=== PATIENT | male | born 1950 | race Caucasian/White ===

== ENCOUNTER 2017-07-19 08:08 | Outpatient (CLI) | payer MEDICARE ==
[2017-07-19 08:51] LABS: #Basophils 0.1 thou/uL (0.0-0.2); #Eosinphils 0.2 thou/uL (0.0-0.7); #Lymphocytes 2.3 thou/uL (1.20-3.40); #Monocytes 0.8 thou/uL (0.11-0.59); #Neutrophils 5.3 thou/uL (1.40-6.50); %Basophils 1.3 % (0.0-1.0); %Eosinophils 2.5 % (0.0-10.0); %Lymphocytes 26.7 % (21.0-51.0); %Monocytes 8.8 % (0.0-10.0); %Neutrophils 60.8 % (42.0-75.0); Hemoglobin 14.2 g/dL (14.0-18.0); Mean Corpuscular Hemoglobin 29.3 pg (27.0-31.0); Mean Corpuscular Volume 88.9 fl (80.0-94.0); Mean Platelet Volume 8.9 fL (7.4-10.4); Platelet Count 232 thou/uL (130-400); RBC Distribution Width 12.4 % (11.5-14.5); Red Blood Cell (RBC) Count 4.86 mill/uL (4.70-6.10); White Blood Cell (WBC) Count 8.7 thou/uL (4.8-10.8)
--- NOTE | 2017-07-19 09:54 | ULT ---
BILATERAL RENAL ULTRASOUND COMPLETE: History: 66-year-old male with history of left renal mass seen on prior MRI. Comparison: MRI examination, 06-28-17. FINDINGS: Right kidney measures 12.1 x 5.9 x 5.1 cm. Left kidney measures 11.4 x 5.4 x 5.1 cm. There is no renal hydronephrosis or perinephric process. There is an exophytic cyst off the mid porti on of the upper pole of the left kidney which measures approximately 1 x 1.4 cm in size but this does not represent the cyst/mass seen on the MRI which was off the very superior tip of the left kidney s o it is not imaged on this study. The bladder appears unremarkable. IMPRESSION: 1. The approximately 2.5 cm diameter mass off the superior tip of the left kidney seen on prior MRI i s not visualized on this ultrasound examination and is therefore not further characterized. Given tim t it is not imaged on the ultrasound examination, a follow up CT scan with and without IV contrast wi th renal mass protocol is recommended for further assessment. 2. Approximately 1 x 1.2 x 1.5 cm diameter exophytic cyst off the mid upper pole region of the left k idney does not represent the mass seen on the prior lumbar spine MRI examination. No renal hydronephr osis or other acute process. POS: C
[2017-07-19 10:09] LABS: ALT (SGPT) 10 U/L (8-55); AST (SGOT) 10 U/L (5-34); Albumin 3.7 g/dL (3.4-4.8); Alkaline Phosphatase 92 U/L (40-150); Anion Gap 15 mmol/L (10-20); BUN (Urea Nitrogen) 16 mg/dL (8.4-25.7); Bilirubin, Direct 0.2 mg/dL (0.1-0.3); Bilirubin, Total 0.4 mg/dL (0.2-1.2); Calc. Creatinine Clearance 0 mL/min (70-130); Carbon Dioxide 25 mmol/L (23-31); Cardiac Risk 3.5 (Less than 4.5); Chloride 102 mmol/L (98-107); Cholesterol 144 mg/dl (< 200 Desired); Estimated GFR-MDRD 57; Glucose 284 mg/dL (80-115); HDL Cholesterol 41 mg/dL (>60 Neg Risk); LDL Cholesterol, Calculated 74 mg/dL; Potassium 4.2 mmol/L (3.5-5.1); Protein, Total 7.5 g/dL (5.8-8.1); Sodium 138 mmol/L (136-145); Triglycerides 147 mg/dL (Less than 150)
[2017-07-19 17:16] LABS: Hemoglobin A1c 11.9 % (4.0-6.0)
== END 2017-07-19 08:09 | disposition home or self-care (01) ==
LOC: MADLABBHPM 08:08 → EDSTATUS 08:09
PROVIDERS: ATTEND Family Medicine
DX: N28.89 Other specified disorders of kidney and ureter (principal); I10 Essential (primary) hypertension; E78.00 Pure hypercholesterolemia, unspecified; I12.9 Hypertensive chronic kidney disease with stage 1 through stage 4 chronic kidney disease, or unspecified chronic kidney disease; E11.22 Type 2 diabetes mellitus with diabetic chronic kidney disease; N18.2 Chronic kidney disease, stage 2 (mild); N28.1 Cyst of kidney, acquired
CPT/HCPCS: 36415; 76770; 80048; 80061; 80076; 83036; 84443; 85025

== ENCOUNTER 2018-01-18 17:21 | Inpatient (IN) | payer MEDICARE ==
[~2018-01-18 17:21] MED LIST: Sodium Chloride Irrig Solution 250 ML BOT ONE
[2018-01-18] MEDS ORDERED: Melatonin 3 MG TAB PO PRN (22:05)
[2018-01-18] MEDS ORDERED: Acetaminophen/Codeine 30-300mg Tablet PO PRN ×2 (22:06)
[2018-01-18] MEDS ORDERED: Amiodarone 200 MG TAB PO SCH (22:15)
[2018-01-18] MEDS ORDERED: Gabapentin 300 MG CAP PO SCH (22:15)
[2018-01-18] MEDS ORDERED: metFORMIN 500 MG TAB PO SCH (22:15)
[2018-01-18] MEDS ORDERED: Lantus 1000 UNITS/10 ML VIAL SC SCH (22:15)
[2018-01-18] MEDS ORDERED: Rosuvastatin 10 MG TAB PO SCH (22:15)
[2018-01-18] MEDS ORDERED: Carvedilol 6.25 MG TAB PO SCH (22:15)
[2018-01-19 05:53] LABS: ALT (SGPT) 9 U/L (8-55); AST (SGOT) 13 U/L (5-34); Albumin 2.9 g/dL (3.4-4.8); Alkaline Phosphatase 83 U/L (40-150); Anion Gap 11 mmol/L (10-20); BUN (Urea Nitrogen) 19 mg/dL (8.4-25.7); Bilirubin, Total 0.5 mg/dL (0.2-1.2); Calc. Creatinine Clearance 0 mL/min (70-130); Calcium 8.8 mg/dL (7.8-10.44); Carbon Dioxide 27 mmol/L (23-31); Cardiac Risk 3.6 (Less than 4.5); Chloride 100 mmol/L (98-107); Cholesterol 142 mg/dl (< 200 Desired); Estimated GFR-MDRD 56; Globulin 3.8 g/dL (2.4-3.5); Glucose 197 mg/dL (80-115); HDL Cholesterol 40 mg/dL (>60 Neg Risk); LDL Cholesterol, Calculated 85 mg/dL; Potassium 4.1 mmol/L (3.5-5.1); Protein, Total 6.7 g/dL (5.8-8.1); Sodium 134 mmol/L (136-145); Triglycerides 85 mg/dL (Less than 150)
[2018-01-19 06:09] LABS: Anisocytosis SLIGHT = 6-15 cells (100X) (0-5/hpf); Eosinophils 1 % (0-10); Hypochromia SLIGHT = 6-15 cells (100X) (0-5/hpf); Lymphocytes 10 % (21-51); MDiff Complete? YES; Mean Corpuscular Hemoglobin 26.7 pg (27.0-31.0); Mean Corpuscular Volume 83.7 fL (78.0-98.0); Mean Platelet Volume 8.3 fL (7.4-10.4); Monocytes 9 % (0-10); Neutrophil 77 % (42-75); PLT Morphology Comment Appears Adequate; Platelet Count 151 thou/uL (130-400); Poikilocytosis SLIGHT = 6-15 cells (100X) (0-5/hpf); RBC Distribution Width 14.6 % (11.5-14.5); RBC Morphology Abnormal; Reactive Lymphocytes 3 % (0-10); Red Blood Cell (RBC) Count 3.37 mill/uL (4.70-6.10); White Blood Cell (WBC) Count 12.3 thou/uL (4.8-10.8)
[2018-01-19] MEDS: HumaLOG 300 UNITS/3 ML VIAL SC SCH ×2 (07:25→17:04)
[2018-01-19] MEDS: metFORMIN 500 MG TAB PO SCH ×2 (08:11→20:38)
[2018-01-19] MEDS: Gabapentin 300 MG CAP PO SCH ×2 (08:11→20:38)
[2018-01-19] MEDS: Amiodarone 200 MG TAB PO SCH ×2 (08:11→20:38)
[2018-01-19] MEDS: Carvedilol 6.25 MG TAB PO SCH ×2 (08:12→17:04)
[2018-01-19] MEDS: Lisinopril 10 MG TAB PO SCH (08:12)
[2018-01-19] MEDS: Lantus 1000 UNITS/10 ML VIAL SC SCH ×2 (08:12→20:36)
[2018-01-19 09:18] LABS: Bilirubin Negative (Negative); Blood, Urine Moderate (Negative); Clarity Cloudy (Clear); Glucose, Urine (Dipstick) 100 mg/dL (Negative); Leukocyte Negative (Negative); Nitrite Negative (Negative); Protein, Urine (Dipstick) > or equal to 300 mg/dL (Neg-Trace); Urobilinogen 0.2 mg/dL (0.2-1.0); pH, Urine 5.5 (5.0-9.0)
[2018-01-19 09:19] LABS: Specific Gravity, Urine 1.023 (1.002-1.036); Squamous Epithelial 0-3 HPF (0-3); WBC/HPF 0-3 HPF (0-3)
[2018-01-19 09:20] LABS: Bacteria/HPF Rare-Few HPF (None Seen); Crystals/HPF 3+ AMORPH URATES HPF (Negative)
[2018-01-19] MEDS: Enoxaparin Sodium 40 MG/0.4 ML SYRINGE SC SCH (09:26)
[2018-01-19] MEDS: Polyethylene Glycol 3350 17 GM Packet PO SCH (09:26)
--- NOTE | 2018-01-19 09:51 | HP ---
Admitted to [facility] on the evening of 01/18/2018 CHIEF COMPLAINT: Severe weakness following low back surgery. PRESENT ILLNESS: The patient is a 67-year-old white male who has a history of diabetes type 2 insuli n-dependent, hypertension, coronary artery disease for which he has had multiple stents and coronary artery bypass in 09/2017. Additionally, he has severe lumbar spondylosis at multiple levels with hig h grade spinal stenosis. He was hospitalized at [facility] from 01/16/2018 until 01/19/20 18 and he underwent a decompressive laminectomy, medial facetectomy, foraminotomy at L1-L2, L3-L4 and L5-S1 with closure of a durotomy in the right L1 by his neurosurgeon, Dr. Mariel Kwon. Postop, he had some trouble with urinary retention and required placement of a Carl catheter. This has happened to him before after his coronary artery bypass surgery and he had use a Carl catheter f or a few days. The patient has not been up other than sitting on the side of the bed, has not been a mbulating, he said it is been too weak. It was opted to transfer patient to [facility] for pur pose of increasing his strength and functional capabilities and manage his postop urinary retention. The patient was transferred early evening to [facility]. The patient was seen early on the morning of 01/19/2018. He said that his back already feels much be tter since his surgery, he was having chronic pain in the back that hurt all over the back and in the legs since his surgery, sore from the surgery, but his overall pain is less. The patient said he bach s not had a bowel movement for several days, said that he was not able to void and required the Carl catheter which was placed on 01/18/2018. The urine has been clear. He has had no dysuria. The pat ient said that he has only been up to sit on the side of the bed, has not been up otherwise out of be d. PAST HISTORY: Hospitalized at [facility] from 01/16/2018 until 01/18/2018 for high grade spinal stenosis of the lumbar spine, particularly at L1-L2 and L3-L4 level for which he underwent a d ecompressive laminectomy, medial facetectomy and foraminotomy and L1-L2, L3-L4, and L5-S1 and closure of a durotomy at right L1. The patient has coronary artery disease. He had a myocardial infarction in 2009 and underwent a heart catheterization and stent x1 on 12/05/2009. He had a second IA in , requiring a second stent. On September, he underwent a preop evaluation for his back and had an abnorma l MPI, heart catheterization then showed severe triple-vessel disease. He underwent a coronary arter y bypass on 10/03/2017. Postop, he had a little trouble with his CHF and fluid overload that respond ed to the diuresis and BiPAP. He has done fine since then. The patient also has hypertension, perip heral artery disease for which he has had stents placed in the lower extremities in 09/2015. He has mild chronic kidney diserase, hypercholesterolemia, diabetes mellitus type 2 that is insulin requirin g and under poor control. He has an exophytic cyst of the mid upper pole of the left kidney and also he has problems with BPH and history of urinary retention after his coronary artery bypass. He has peripheral neuropathy of the lower extremities from the diabetes. On 09/2017, his echocardiogram lucas wed an ejection fraction of 40%. The patient has had a right total hip replacement. The patient has some trouble with postop atrial fibrillation for which he has had no recurrence. PRESENT MEDICINES: Tylenol #3 one or two every 6 hours as needed, amiodarone 200 mg b.i.d., carvedil ol 6.25 mg b.i.d., Neurontin 300 mg b.i.d., Levemir 15 units subcutaneous q.12 hours, Humalog 4 units before meals twice today, Crestor 20 mg daily, metformin 1000 mg b.i.d., melatonin 3 mg at bedtime a s needed, lisinopril 10 mg daily. ALLERGIES: No known allergies. REVIEW OF SYSTEMS: The patient has had no chills or fever. He does not think his weight has changed recently. Head and Neck: No complaints. Pulmonary: No shortness of breath. Cardiovascular: No chest pain. Gastrointestinal: No nausea or vomiting. He has not had a bowel mo vement for several days. Genitourinary: He has not been able to void after the surgery and required placement of a catheter on 01/18/2018. Back: Sore from the surgery. Extremities: Lower extremiti es, no edema. Neurologic: No complaints. HABITS: Tobacco none. Alcohol none. SOCIAL HISTORY: Patient is and recently lives with his . CODE STATUS: FULL CODE. PHYSICAL EXAMINATION: GENERAL: Shows a pleasant 67-year-old white male who is lying in bed. He is awake and alert and yury kative. He appears comfortable. Needs help with moving in bed due to his weakness. VITAL SIGNS: Shows temperature 97.6, pulse 88, blood pressure 133/67, respirations 18, O2 sat 96% on room air, blood pressure 148/76. His weight to be weigh. HEAD: Normocephalic. EYES: Pupils were equal, round, reactive. EARS: TMs are clear. NOSE: Normal. MOUTH AND THROAT: Normal. NECK: No adenopathy. Thyroid not enlarged. Carotids are equal and strong, no bruits. LUNGS: Clear. HEART: Regular rate. No murmurs. CHEST: The patient has a well healed sternal scar. ABDOMEN: Soft with no organomegaly, nor areas of tenderness. EXTREMITIES: No edema. The patient has an indwelling Carl catheter. BACK: The patient has an incision along the lumbar spine with shivam present. He has a Tegaderm wi th pad overlying the incision. This was changed a couple of times during the night due to some seros anguineous drainage. There is no surrounding redness. LABORATORY DATA: Hemoglobin and hematocrit are 9 and 28.2, white cell count 12,300 with 72% segs, 10 % lymphocytes, and a platelet count of 151,000. Sodium 134, potassium 4.1, BUN 19, creatinine 1.28, GFR 56, glucose 197, albumin 2.9, cholesterol 142, triglycerides 85, LDL 85, HDL 40. Hemoglobin A1c pending. IMPRESSION: 1. Generalized weakness and deconditioning. A. Secondary to his low back surgery on 01/16/2018. B. Presently, he has not been up ambulating since his surgery. 2. Hospitalized at [facility] from 01/16/2018 until 01/18/2018 for severe spondylosis of the lumbar spine with high grade stenosis for which he underwent a decompressive surgery. 3. Severe spondylosis of the lumbar spine with high grade spinal stenosis and neurogenic claudicatio n at L1-L2, L3-L4 and L5-S1 level. A. Status post decompressive laminectomy, medial facetectomy, foraminotomy at L1-L2, L3-L4, and L5-S 1 with closure of durotomy on the right L1 on 01/16/[address] Mariel Kwon. B. Complicated by postop urinary retention requiring placement of Carl catheter on 01/18/2018. 4. Postop urinary retention. A. Requiring placement of Carl catheter on 01/18/2018. B. History of postop urinary retention with coronary artery bypass surgery in 09/2017. 5. Coronary artery disease. A. Status post myocardial infarction in 2009 and again in 2011. B. Status post stent x1, following the myocardial infarction in 2009 and second stent applied after the myocardial infarction in 2011. C. Coronary artery bypass x3 after an abnormal MPI. Heart cath showed triple-vessel disease, 2017. D. Echocardiogram on 09/29/2017 showed ejection fraction of 35%-40% with apex akinetic and atrial fi brillation, mild increased left ventricular size. 6. Diabetes type 2. A. Insulin-dependent. B. Poor control. C. Complicated by peripheral neuropathy. 7. Hypercholesterolemia. 8. Chronic kidney disease, mild. A. Moderate chronic kidney disease with a GFR of 56. 9. Peripheral vascular disease. A. Status post stent placed in the lower extremities in 09/2015. 10. Episode of atrial fibrillation. History of following coronary artery bypass, 09/2017. 11. Anemia. A. Hemoglobin 9.0. B. Etiology probably secondary to recent back surgery. PLAN: The patient has been admitted to [facility] to extended care for physical therapy, PT an d OT will begin working with him and gradually progressing his activities. We will continue his pres ent medicines, I have placed him on a consistent carbohydrate diet. He will receive his usual insuli n basal and preprandial Humalog. Carl catheter will be left in a few days until he is more active a nd then this will be removed. He will be placed on MiraLax and also deep venous thrombosis prophylax is with the Lovenox. CODE STATUS: FULL.
[2018-01-19 12:15] LABS: Hemoglobin A1c 8.7 % (4.0-6.0)
[2018-01-19] MEDS: Ondansetron ODT 4 MG TAB PO PRN (13:30)
[2018-01-19] MEDS: Rosuvastatin 10 MG TAB PO SCH (20:38)
[2018-01-20] MEDS: HumaLOG 300 UNITS/3 ML VIAL SC SCH ×2 (07:30→16:35)
[2018-01-20] MEDS: Enoxaparin Sodium 40 MG/0.4 ML SYRINGE SC SCH (08:15)
[2018-01-20] MEDS: Lantus 1000 UNITS/10 ML VIAL SC SCH ×2 (08:16→20:00)
[2018-01-20] MEDS: Polyethylene Glycol 3350 17 GM Packet PO SCH (08:18)
[2018-01-20] MEDS: metFORMIN 500 MG TAB PO SCH ×2 (08:19→20:01)
[2018-01-20] MEDS: Gabapentin 300 MG CAP PO SCH ×2 (08:19→20:01)
[2018-01-20] MEDS: Lisinopril 10 MG TAB PO SCH (08:20)
[2018-01-20] MEDS: Carvedilol 6.25 MG TAB PO SCH ×2 (08:20→16:35)
[2018-01-20] MEDS: Rosuvastatin 10 MG TAB PO SCH (20:01)
[2018-01-21] MEDS: Enoxaparin Sodium 40 MG/0.4 ML SYRINGE SC SCH (08:21)
[2018-01-21] MEDS: Polyethylene Glycol 3350 17 GM Packet PO SCH (08:21)
[2018-01-21] MEDS: Lantus 1000 UNITS/10 ML VIAL SC SCH ×2 (08:21→20:06)
[2018-01-21] MEDS: Gabapentin 300 MG CAP PO SCH ×2 (08:22→20:07)
[2018-01-21] MEDS: Lisinopril 10 MG TAB PO SCH (08:22)
[2018-01-21] MEDS: metFORMIN 500 MG TAB PO SCH ×2 (08:22→20:06)
[2018-01-21] MEDS: Carvedilol 6.25 MG TAB PO SCH ×2 (08:22→16:47)
[2018-01-21] MEDS: HumaLOG 300 UNITS/3 ML VIAL SC SCH ×2 (08:22→16:28)
[2018-01-21] MEDS: Ondansetron ODT 4 MG TAB PO PRN ×2 (12:34→16:46)
--- NOTE | 2018-01-21 17:19 | PRG ---
DATE OF SERVICE: 01/21/2018 SUBJECTIVE: The patient said he is feeling better, had a little nausea this morning and has vomited a small amount now; this happens intermittently. He has not been able to really stand for any length of time. He says his legs just get weak. He does have good sensation of the leg and ability to mov e the leg. He is getting a little more mobile in bed. He says he feels better and he said one of gregory mornings, he is going to get up and be able to just move better and walk. His had reported that he has been very depressed for some time even before this hospitalization. At times, he gets ve ry angry with her and has requested a trial of an antidepressant. OBJECTIVE: The patient seemed to be in good spirits. He is alert, talkative, appears in no distress . His vital signs show a temperature of 96.6, pulse 60, respirations 20, O2 sat 95% on room air, blo od pressure 142/71. Lungs were clear. Heart, regular rate. Abdomen, soft and nontender. Extremiti es: There is no edema. The patient has equal strength in both legs, can dorsiflex and plantarflex f sonja the feet, can raise the legs, but cannot hold them for very long in a raised position. He is slo w to try to turn himself in bed. His FBS this morning was 141. ASSESSMENT: 1. Generalized weakness and deconditioning. A. Secondary to his low back surgery on 01/16/2018. B. Presently, he has not been up ambulating since his surgery. C. Presently can only stand for a few seconds, still very weak in his legs as of 01/21/2018. 2. Hospitalized at [facility] from 01/16/2018 until 01/18/2018 for severe spondylosis of the lumbar spine with high grade stenosis for which he underwent a decompressive surgery. 3. Severe spondylosis of the lumbar spine with high grade spinal stenosis and neurogenic claudicatio n at L1-L2, L3-L4 and L5-S1 level. A. Status post decompressive laminectomy, medial facetectomy, foraminotomy at L1-L2, L3-L4, and L5-S 1 with closure of durotomy on the right L1 on 01/16/[address] L[address] Seth III Doyle. B. Complicated by postop urinary retention requiring placement of Carl catheter on 01/18/2018. 4. Postop urinary retention. A. Requiring placement of Carl catheter on 01/18/2018. B. History of postop urinary retention with coronary artery bypass surgery in 09/2017. C. Still requires Carl catheter. After he is more mobile, should be able to discontinue this, as o f 01/21/2018. 5. Coronary artery disease. A. Status post myocardial infarction in 2009 and again in 2011. B. Status post stent x1, following the myocardial infarction in 2009 and second stent applied after the myocardial infarction in 2011. C. Coronary artery bypass x3 after an abnormal MPI. Heart cath showed triple-vessel disease, 2017. D. Echocardiogram on 09/29/2017 showed ejection fraction of 35%-40% with apex akinetic and atrial fi brillation, mild increased left ventricular size. 6. Diabetes type 2. A. Insulin-dependent. B. Controlled and improving. Hemoglobin A1c down to 8.7. FBS 141 as of 01/21/2018. C. Complicated by peripheral neuropathy. 7. Hypercholesterolemia. 8. Chronic kidney disease, mild. A. Moderate chronic kidney disease with a GFR of 56. 9. Peripheral vascular disease. A. Status post stent placed in the lower extremities in 09/2015. 10. Episode of atrial fibrillation. History of following coronary artery bypass, 09/2017. 11. Anemia. A. Hemoglobin 9.0. B. Etiology probably secondary to recent back surgery. 12. Depression. PLAN: Encouraged the patient to continue to do as much exercise as he can in bed and resistant strai n of the legs and continue to work with physical therapy to try to improve his strength in his legs, so he can begin standing and walking. We will try patient on fluoxetine for the depression. We will try to preferentially go with his Tylenol in case the Tylenol #3 is causing the nausea.
--- NOTE | 2018-01-21 17:22 | PRG ---
DATE OF SERVICE: 01/20/2018 SUBJECTIVE: The patient says he is doing a little better. He has had some nausea yesterday for whic h he was given some Zofran oral disintegrating tablet. He is having no nausea today. Overall, he fe els better. He is still having a lot of soreness from the surgery in his back, but this is different from the pain that he had had prior to the surgery. He says his legs are very weak. Physical therharleen ferreira says that he can only stand for about 5-10 seconds and has to sit down, his leg just gets weak. He has no numbness in the legs other than the toes which were prior to the surgery. The patient's w gloria had brought his home medicines in and these were reviewed. His said that the chain sales consultant h ad stopped the amiodarone, so this will be stopped. OBJECTIVE: The patient is sitting up in a Janessa chair. He is alert and appears comfortable. His vit al signs show a temperature of 98.3, pulse 66, respirations 20, O2 sat 93% on room air, blood pressur e 109/54. His lungs are clear. Heart, regular rate. Extremities, no edema. The patient has an ind welling Carl catheter. His FBS this morning was 144. His hemoglobin A1c done yesterday was 8.7. ASSESSMENT: 1. Generalized weakness and deconditioning. A. Secondary to his low back surgery on 01/16/2018. B. Strength improved, but still can only tolerate standing for a few seconds. Therapy is working on this and then will advance from they are within his tolerance as of 01/20/2018. 2. Hospitalized at [facility] from 01/16/2018 until 01/18/2018 for severe spondylosis of the lumbar spine with high grade stenosis for which he underwent a decompressive surgery. 3. Severe spondylosis of the lumbar spine with high grade spinal stenosis and neurogenic claudicatio n at L1-L2, L3-L4 and L5-S1 level. A. Status post decompressive laminectomy, medial facetectomy, foraminotomy at L1-L2, L3-L4, and L5-S 1 with closure of durotomy on the right L1 on 01/16/[address] Mariel Kwon. B. Complicated by postop urinary retention requiring placement of Carl catheter on 01/18/2018. 4. Postop urinary retention. A. Requiring placement of Carl catheter on 01/18/2018. B. History of postop urinary retention with coronary artery bypass surgery in 09/2017. C. Continues to have an indwelling Carl catheter as of 01/20/2018. 5. Coronary artery disease. A. Status post myocardial infarction in 2009 and again in 2011. B. Status post stent x1, following the myocardial infarction in 2009 and second stent applied after the myocardial infarction in 2011. C. Coronary artery bypass x3 after an abnormal MPI. Heart cath showed triple-vessel disease, 2017. D. Echocardiogram on 09/29/2017 showed ejection fraction of 35%-40% with apex akinetic and atrial fi brillation, mild increased left ventricular size. 6. Diabetes type 2. A. Insulin-dependent. B. Poor control. C. Complicated by peripheral neuropathy. 7. Hypercholesterolemia. 8. Chronic kidney disease, mild. A. Moderate chronic kidney disease with a GFR of 56. 9. Peripheral vascular disease. A. Status post stent placed in the lower extremities in 09/2015. 10. History of atrial fibrillation after his coronary artery bypass in 09/2017. A. Remains in sinus rhythm. B. Amiodarone had been discontinued by his chain sales consultant. 11. Anemia. A. Hemoglobin 9.0. B. Etiology probably secondary to recent back surgery. PLAN: We will continue present care. We will stop the amiodarone since this had been stopped by his chain sales consultant. Physical Therapy and Occupational Therapy will continue to work with him. He can onl y tolerate standing for a few seconds. We will have to build up his standing ability before they can really began working with any ambulation. We will continue the upper body strengthening and the exe rcise in bed. Continue Carl catheter.
[2018-01-21] MEDS: Rosuvastatin 10 MG TAB PO SCH (20:06)
[2018-01-22] MEDS: Enoxaparin Sodium 40 MG/0.4 ML SYRINGE SC SCH (08:57)
[2018-01-22] MEDS: Carvedilol 6.25 MG TAB PO SCH ×2 (08:58→16:32)
[2018-01-22] MEDS: Acetaminophen 325 MG TAB PO PRN (08:58)
[2018-01-22] MEDS: Lisinopril 10 MG TAB PO SCH (08:58)
[2018-01-22] MEDS: FLUoxetine HCl 20 MG CAP PO SCH (08:59)
[2018-01-22] MEDS: metFORMIN 500 MG TAB PO SCH ×2 (08:59→20:40)
[2018-01-22] MEDS: Gabapentin 300 MG CAP PO SCH ×2 (08:59→20:40)
[2018-01-22] MEDS: HumaLOG 300 UNITS/3 ML VIAL SC SCH ×2 (09:02→16:32)
[2018-01-22] MEDS: Lantus 1000 UNITS/10 ML VIAL SC SCH ×2 (09:04→20:51)
[2018-01-22] MEDS: Polyethylene Glycol 3350 17 GM Packet PO SCH (09:09)
[2018-01-22] MEDS: Ondansetron ODT 4 MG TAB PO PRN (12:03)
[2018-01-22] MEDS: Rosuvastatin 10 MG TAB PO SCH (20:40)
[2018-01-23 05:28] LABS: #Basophils 0.1 thou/uL (0.0-0.2); #Eosinphils 0.2 thou/uL (0.0-0.7); #Lymphocytes 1.6 thou/uL (1.20-3.40); #Monocytes 0.9 thou/uL (0.11-0.59); #Neutrophils 5.4 thou/uL (1.40-6.50); %Basophils 0.9 % (0.0-1.0); %Eosinophils 2.1 % (0.0-10.0); %Lymphocytes 19.8 % (21.0-51.0); %Monocytes 10.9 % (0.0-10.0); %Neutrophils 66.4 % (42.0-75.0); Hemoglobin 9.3 g/dL (14.0-18.0); Mean Corpuscular HGB CONC 33.2 g/dL (32.0-36.0); Mean Corpuscular Hemoglobin 26.8 pg (27.0-31.0); Mean Corpuscular Volume 80.7 fL (78.0-98.0); Mean Platelet Volume 6.9 fL (7.4-10.4); Platelet Count 319 thou/uL (130-400); RBC Distribution Width 13.8 % (11.5-14.5); Red Blood Cell (RBC) Count 3.49 mill/uL (4.70-6.10); White Blood Cell (WBC) Count 8.2 thou/uL (4.8-10.8)
[2018-01-23 05:45] LABS: ALT (SGPT) 13 U/L (8-55); AST (SGOT) 19 U/L (5-34); Albumin 2.9 g/dL (3.4-4.8); Alkaline Phosphatase 88 U/L (40-150); Anion Gap 13 mmol/L (10-20); BUN (Urea Nitrogen) 17 mg/dL (8.4-25.7); Bilirubin, Total 0.4 mg/dL (0.2-1.2); Calc. Creatinine Clearance 0 mL/min (70-130); Calcium 9.2 mg/dL (7.8-10.44); Carbon Dioxide 28 mmol/L (23-31); Chloride 98 mmol/L (98-107); Estimated GFR-MDRD 84; Globulin 4.4 g/dL (2.4-3.5); Glucose 73 mg/dL (80-115); Protein, Total 7.3 g/dL (5.8-8.1); Sodium 135 mmol/L (136-145)
[2018-01-23] MEDS: HumaLOG 300 UNITS/3 ML VIAL SC SCH ×2 (08:20→16:53)
[2018-01-23] MEDS: Carvedilol 6.25 MG TAB PO SCH ×2 (09:13→18:23)
[2018-01-23] MEDS: Lantus 1000 UNITS/10 ML VIAL SC SCH ×2 (09:13→20:45)
[2018-01-23] MEDS: FLUoxetine HCl 20 MG CAP PO SCH (09:14)
[2018-01-23] MEDS: Gabapentin 300 MG CAP PO SCH ×2 (09:14→20:45)
[2018-01-23] MEDS: Enoxaparin Sodium 40 MG/0.4 ML SYRINGE SC SCH (09:14)
[2018-01-23] MEDS: Lisinopril 10 MG TAB PO SCH (09:15)
[2018-01-23] MEDS: metFORMIN 500 MG TAB PO SCH ×2 (09:15→20:45)
[2018-01-23] MEDS: Polyethylene Glycol 3350 17 GM Packet PO SCH (09:16)
--- NOTE | 2018-01-23 12:58 | PRG ---
DATE OF SERVICE: 01/23/2018 SUBJECTIVE: The patient said he is feeling better. His nausea is better. He said today he has been around in physical therapy and therapist said that he was able to stand and take 2-3 steps. His upp er body strength is improving. OBJECTIVE: The patient is sitting up in his wheelchair doing exercise for his arms. He looks much b tushar, appears in no distress. His vital signs show a temperature 97.6, pulse 62, respirations 18, O 2 sat 95% on room air, blood pressure 137/67. Lungs are clear. Heart, regular rate. Extremities: No edema. H&H 9.3 and 28.2. White cell count 8200 with 66% segs, 20% lymphocytes, and a platelet count of 319, 000. Sodium 135, potassium 4, BUN 17, creatinine 0.9, GFR 84, glucose of 73. ASSESSMENT: 1. Generalized weakness and deconditioning. A. Secondary to his low back surgery on 01/16/2018. B. Presently, he has not been up ambulating since his surgery. C. Improved, now able to stand for a short period and take 2-3 steps. Upper body strength improved as of 01/23/2018. 2. Hospitalized at [facility] from 01/16/2018 until 01/18/2018 for severe spondylosis of the lumbar spine with high grade stenosis for which he underwent a decompressive surgery. 3. Severe spondylosis of the lumbar spine with high grade spinal stenosis and neurogenic claudicatio n at L1-L2, L3-L4 and L5-S1 level. A. Status post decompressive laminectomy, medial facetectomy, foraminotomy at L1-L2, L3-L4, and L5-S 1 with closure of durotomy on the right L1 on 01/16/[address] Mariel Kwon. B. Complicated by postop urinary retention requiring placement of Carl catheter on 01/18/2018. 4. Postop urinary retention. A. Requiring placement of Carl catheter on 01/18/2018. B. History of postop urinary retention with coronary artery bypass surgery in 09/2017. C. Still requires Carl catheter. After he is more mobile, should be able to discontinue this, as o f 01/23/2018. 5. Coronary artery disease. A. Status post myocardial infarction in 2009 and again in 2011. B. Status post stent x1, following the myocardial infarction in 2009 and second stent applied after the myocardial infarction in 2011. C. Coronary artery bypass x3 after an abnormal MPI. Heart cath showed triple-vessel disease, 2017. D. Echocardiogram on 09/29/2017 showed ejection fraction of 35%-40% with apex akinetic and atrial fi brillation, mild increased left ventricular size. 6. Diabetes type 2. A. Insulin-dependent. B. Controlled and improving. Hemoglobin A1c down to 8.7. FBS 141 as of 01/21/2018. C. Complicated by peripheral neuropathy. 7. Hypercholesterolemia. 8. Chronic kidney disease, mild. A. Moderate chronic kidney disease with a GFR of 56. B. GFR up to 84 as of 01/23/2018. 9. Peripheral vascular disease. A. Status post stent placed in the lower extremities in 09/2015. 10. Episode of atrial fibrillation. History of following coronary artery bypass, 09/2017. 11. Anemia. A. Hemoglobin 9.3 as of 01/23/2018. B. Etiology probably secondary to recent back surgery. 12. Depression. PLAN: The patient is doing better. He is now able to stand for little longer periods and take a few steps. Anticipate now that this will continue to progress. We will continue PT and OT.
[2018-01-23] MEDS: Rosuvastatin 10 MG TAB PO SCH (20:45)
[2018-01-24] MEDS: Lantus 1000 UNITS/10 ML VIAL SC SCH ×2 (07:32→20:48)
[2018-01-24] MEDS: HumaLOG 300 UNITS/3 ML VIAL SC SCH ×2 (07:33→16:57)
[2018-01-24] MEDS: Enoxaparin Sodium 40 MG/0.4 ML SYRINGE SC SCH (07:34)
[2018-01-24] MEDS: Gabapentin 300 MG CAP PO SCH ×2 (07:35→20:50)
[2018-01-24] MEDS: FLUoxetine HCl 20 MG CAP PO SCH (07:35)
[2018-01-24] MEDS: Lisinopril 10 MG TAB PO SCH (07:36)
[2018-01-24] MEDS: Carvedilol 6.25 MG TAB PO SCH ×2 (07:36→16:57)
[2018-01-24] MEDS: metFORMIN 500 MG TAB PO SCH ×2 (07:36→20:50)
[2018-01-24] MEDS: Polyethylene Glycol 3350 17 GM Packet PO SCH (07:36)
[2018-01-24] MEDS: Rosuvastatin 10 MG TAB PO SCH (20:49)
--- NOTE | 2018-01-25 08:44 | PRG ---
DATE OF SERVICE: 01/25/2018. SUBJECTIVE: The patient said he is feeling a lot better. He says he has not had any more of the caleb sea. He is using only Tylenol for pain. He is doing better with physical therapy. He is standing a nd taking at least 8 steps with a rolling walker. He is still little unsteady, but progressing, stil l requiring a lot of assistance with any transfers. OBJECTIVE: GENERAL: The patient is sitting up in bed, drinking coffee. He looks much better. VITAL SIGNS: His temperature is 96.8, pulse 67, respirations 18, O2 saturation 97%, blood pressure 1 62/78. LUNGS: Clear. HEART: Regular rate. EXTREMITIES: No edema. LABORATORY DATA: His FBS this morning is pending. Yesterday, it was 121. ASSESSMENT: 1. Generalized weakness and deconditioning. A. Secondary to his low back surgery on 01/16/2018. B. Presently, he has not been up ambulating since his surgery. C. Improved, standing some and taking up to 8 steps as of 01/25/2018. 2. Hospitalized at [facility] from 01/16/2018 until 01/18/2018 for severe spondylosis of the lumbar spine with high grade stenosis for which he underwent a decompressive surgery. 3. Severe spondylosis of the lumbar spine with high grade spinal stenosis and neurogenic claudicatio n at L1-L2, L3-L4 and L5-S1 level. A. Status post decompressive laminectomy, medial facetectomy, foraminotomy at L1-L2, L3-L4, and L5-S 1 with closure of durotomy on the right L1 on 01/16/[address] Mariel Kwon. B. Complicated by postop urinary retention requiring placement of Carl catheter on 01/18/2018. 4. Postop urinary retention. A. Requiring placement of Carl catheter on 01/18/2018. B. History of postop urinary retention with coronary artery bypass surgery in 09/2017. C. The patient would like to try voiding without the catheter as of 01/25/2018. 5. Coronary artery disease. A. Status post myocardial infarction in 2009 and again in 2011. B. Status post stent x1, following the myocardial infarction in 2009 and second stent applied after the myocardial infarction in 2011. C. Coronary artery bypass x3 after an abnormal MPI. Heart cath showed triple-vessel disease, 2017. D. Echocardiogram on 09/29/2017 showed ejection fraction of 35%-40% with apex akinetic and atrial fi brillation, mild increased left ventricular size. 6. Diabetes type 2. A. Insulin-dependent. B. Controlled and improving. Hemoglobin A1c down to 8.7. FBS 141 as of 01/21/2018. C. Complicated by peripheral neuropathy. 7. Hypercholesterolemia. 8. Chronic kidney disease, mild. A. Moderate chronic kidney disease with a GFR of 56. B. GFR up to 84 as of 01/23/2018. 9. Peripheral vascular disease. A. Status post stent placed in the lower extremities in 09/2015. 10. Episode of atrial fibrillation. History of following coronary artery bypass, 09/2017. 11. Anemia. A. Hemoglobin 9.3 as of 01/23/2018. B. Etiology probably secondary to recent back surgery. 12. Depression. PLAN: Continue PT. Encourage the patient to continue working with PT and OT. We will try discontin uing the catheter.
--- NOTE | 2018-01-25 08:45 | PRG ---
DATE OF SERVICE: 01/24/2018 SUBJECTIVE: The patient said he feels better today. Therapy is working with him. He is standing an d taking a few steps. He has not had any more nausea. The Tylenol seems to be working fine with his pain medication. I visited with his yesterday and she was concerned because of his emotional u ps and downs and their strained relationship. The patient has been started on antidepressant. This morning he seems to be in good spirits and in no distress. OBJECTIVE: Vital signs show a temperature of 98.3, pulse 65, respirations 16, O2 sat 96% on room air , blood pressure 164/79. Lungs were clear. Heart, regular rate. Extremities, no edema. Incision o n his low back is healing well. Chayo are present. There is no drainage, no redness. ASSESSMENT: 1. Generalized weakness and deconditioning. A. Secondary to his low back surgery on 01/16/2018. B. Presently, he has not been up ambulating since his surgery. C. Improved. Now able to stand and take a few steps with assistance and a walker as of 01/24/2018. 2. Hospitalized at [facility] from 01/16/2018 until 01/18/2018 for severe spondylosis of the lumbar spine with high grade stenosis for which he underwent a decompressive surgery. 3. Severe spondylosis of the lumbar spine with high grade spinal stenosis and neurogenic claudicatio n at L1-L2, L3-L4 and L5-S1 level. A. Status post decompressive laminectomy, medial facetectomy, foraminotomy at L1-L2, L3-L4, and L5-S 1 with closure of durotomy on the right L1 on 01/16/[address] Mariel Kwon. B. Complicated by postop urinary retention requiring placement of Carl catheter on 01/18/2018. C. Incision healing well, no redness, no drainage as of 01/24/2018. 4. Postop urinary retention. A. Requiring placement of Carl catheter on 01/18/2018. B. History of postop urinary retention with coronary artery bypass surgery in 09/2017. C. Still requires Carl catheter. After he is more mobile, should be able to discontinue this, as o f 01/24/2018. 5. Coronary artery disease. A. Status post myocardial infarction in 2009 and again in 2011. B. Status post stent x1, following the myocardial infarction in 2009 and second stent applied after the myocardial infarction in 2011. C. Coronary artery bypass x3 after an abnormal MPI. Heart cath showed triple-vessel disease, 2017. D. Echocardiogram on 09/29/2017 showed ejection fraction of 35%-40% with apex akinetic and atrial fi brillation, mild increased left ventricular size. 6. Diabetes type 2. A. Insulin-dependent. B. Controlled and improving. Hemoglobin A1c down to 8.7. FBS 141 as of 01/21/2018. C. Complicated by peripheral neuropathy. 7. Hypercholesterolemia. 8. Chronic kidney disease, mild. A. Moderate chronic kidney disease with a GFR of 56. B. GFR up to 84 as of 01/23/2018. 9. Peripheral vascular disease. A. Status post stent placed in the lower extremities in 09/2015. 10. Episode of atrial fibrillation. History of following coronary artery bypass, 09/2017. 11. Anemia. A. Hemoglobin 9.3 as of 01/23/2018. B. Etiology probably secondary to recent back surgery. 12. Depression. PLAN: Continue physical therapy and occupational therapy. The patient had been started on a diet bonilla pplement with Glucerna shakes. We will stop the Tylenol 3 since he seems to be doing fine on the matthew in Tylenol. His says that on occasion he gets just a little mixed up. This has occurred even p rior to this hospitalization, was worse in September after his cardiac surgery, but got better as he improv ed. Stopping the Tylenol #3 will probably help. His pain seemed to be well controlled with plain Ty lenol.
[2018-01-25] MEDS: Polyethylene Glycol 3350 17 GM Packet PO SCH (09:13)
[2018-01-25] MEDS: Lisinopril 10 MG TAB PO SCH (09:14)
[2018-01-25] MEDS: Enoxaparin Sodium 40 MG/0.4 ML SYRINGE SC SCH (09:14)
[2018-01-25] MEDS: FLUoxetine HCl 20 MG CAP PO SCH (09:14)
[2018-01-25] MEDS: Lantus 1000 UNITS/10 ML VIAL SC SCH ×2 (09:14→20:38)
[2018-01-25] MEDS: Gabapentin 300 MG CAP PO SCH ×2 (09:14→20:39)
[2018-01-25] MEDS: Carvedilol 6.25 MG TAB PO SCH ×2 (09:14→17:06)
[2018-01-25] MEDS: metFORMIN 500 MG TAB PO SCH ×2 (09:14→20:39)
[2018-01-25] MEDS: HumaLOG 300 UNITS/3 ML VIAL SC SCH ×2 (09:15→17:06)
[2018-01-25] MEDS: Rosuvastatin 10 MG TAB PO SCH (20:39)
--- NOTE | 2018-01-26 08:33 | PRG ---
DATE OF SERVICE: 01/26/2018 SUBJECTIVE: The patient said he is feeling better. His catheter was removed yesterday. He said he is not having any trouble with his urination. Overall, he is feeling better. Yesterday he required minimum to moderate assistance with his walking, he was walking with a rolling walker up to 15 feet t wice. His transfers are becoming a little easier, but he still takes moderate assist. OBJECTIVE: The patient looks much better. He appears in no distress. His temperature 97, pulse 65, respirations 16, O2 sat 94% on room air, blood pressure 162/79. Lungs were clear. Heart, regular r ate. Extremities, no edema. FBS . ASSESSMENT: 1. Generalized weakness and deconditioning. A. Secondary to his low back surgery on 01/16/2018. B. Presently, he has not been up ambulating since his surgery. C. Improved. Transfers are a little easier and only required moderate assist. He is walking now up to 15 feet twice a day as of 01/26/2018. 2. Hospitalized at [facility] from 01/16/2018 until 01/18/2018 for severe spondylosis of the lumbar spine with high grade stenosis for which he underwent a decompressive surgery. 3. Severe spondylosis of the lumbar spine with high grade spinal stenosis and neurogenic claudicatio n at L1-L2, L3-L4 and L5-S1 level. A. Status post decompressive laminectomy, medial facetectomy, foraminotomy at L1-L2, L3-L4, and L5-S 1 with closure of durotomy on the right L1 on 01/16/[address] Mariel Ann III [facility] [address]. B. Complicated by postop urinary retention requiring placement of Carl catheter on 01/18/2018. 4. Postop urinary retention. A. Requiring placement of Carl catheter on 01/18/2018. B. History of postop urinary retention with coronary artery bypass surgery in 09/2017. C. The patient would like to try voiding without the catheter as of 01/25/2018. D. Voiding without any difficulty since catheter removed on 01/25/2018 as of 01/26/2018. 5. Coronary artery disease. A. Status post myocardial infarction in 2009 and again in 2011. B. Status post stent x1, following the myocardial infarction in 2009 and second stent applied after the myocardial infarction in 2011. C. Coronary artery bypass x3 after an abnormal MPI. Heart cath showed triple-vessel disease, 2017. D. Echocardiogram on 09/29/2017 showed ejection fraction of 35%-40% with apex akinetic and atrial fi brillation, mild increased left ventricular size. 6. Diabetes type 2. A. Insulin-dependent. B. Controlled, improving. Hemoglobin A1c was 8.7. FBS 102 as of 01/26/2018. C. Complicated by peripheral neuropathy. 7. Hypercholesterolemia. 8. Chronic kidney disease, mild. A. Moderate chronic kidney disease with a GFR of 56. B. GFR up to 84 as of 01/23/2018. 9. Peripheral vascular disease. A. Status post stent placed in the lower extremities in 09/2015. 10. Episode of atrial fibrillation. History of following coronary artery bypass, 09/2017. 11. Anemia. A. Hemoglobin 9.3 as of 01/23/2018. B. Etiology probably secondary to recent back surgery. 12. Depression. A. Improved as of 01/26/2018. PLAN: Overall, the patient looks better. He is starting to make a little further progress with his therapy. Still requires moderate assistance on transfer, but is beginning to walk a little further. Suspect that this will continue to improve. Continue PT and OT.
[2018-01-26] MEDS: Lisinopril 10 MG TAB PO SCH (08:38)
[2018-01-26] MEDS: Gabapentin 300 MG CAP PO SCH ×2 (08:38→20:32)
[2018-01-26] MEDS: Lantus 1000 UNITS/10 ML VIAL SC SCH ×2 (08:38→20:32)
[2018-01-26] MEDS: Enoxaparin Sodium 40 MG/0.4 ML SYRINGE SC SCH (08:38)
[2018-01-26] MEDS: HumaLOG 300 UNITS/3 ML VIAL SC SCH ×3 (08:38→17:10)
[2018-01-26] MEDS: FLUoxetine HCl 20 MG CAP PO SCH (08:38)
[2018-01-26] MEDS: Carvedilol 6.25 MG TAB PO SCH ×2 (08:38→16:56)
[2018-01-26] MEDS: metFORMIN 500 MG TAB PO SCH ×2 (08:38→20:32)
[2018-01-26] MEDS: Polyethylene Glycol 3350 17 GM Packet PO SCH (08:39)
[2018-01-26] MEDS ORDERED: Polyethylene Glycol 3350 17 GM Packet PO PRN (12:24)
[2018-01-26] MEDS: Rosuvastatin 10 MG TAB PO SCH (20:33)
[2018-01-26] MEDS: Acetaminophen 325 MG TAB PO PRN (20:33)
[2018-01-26 22:35] LABS: #Basophils 0.1 thou/uL (0.0-0.2); #Eosinphils 0.1 thou/uL (0.0-0.7); #Lymphocytes 1.3 thou/uL (1.20-3.40); #Monocytes 1.4 thou/uL (0.11-0.59); %Basophils 0.5 % (0.0-1.0); %Eosinophils 0.4 % (0.0-10.0); %Lymphocytes 7.8 % (21.0-51.0); %Monocytes 8.1 % (0.0-10.0); %Neutrophils 83.3 % (42.0-75.0); Hemoglobin 9.4 g/dL (14.0-18.0); Mean Corpuscular HGB CONC 33.2 g/dL (32.0-36.0); Mean Corpuscular Hemoglobin 26.9 pg (27.0-31.0); Platelet Count 531 thou/uL (130-400); RBC Distribution Width 14.2 % (11.5-14.5); White Blood Cell (WBC) Count 16.8 thou/uL (4.8-10.8)
[2018-01-26 22:47] LABS: Anion Gap 13 mmol/L (10-20); BUN (Urea Nitrogen) 19 mg/dL (8.4-25.7); Calc. Creatinine Clearance 98 mL/min (70-130); Calcium 8.8 mg/dL (7.8-10.44); Carbon Dioxide 25 mmol/L (23-31); Chloride 99 mmol/L (98-107); Estimated GFR-MDRD 70; Glucose 126 mg/dL (80-115); Potassium 4.1 mmol/L (3.5-5.1); Sodium 133 mmol/L (136-145)
[2018-01-27 01:04] LABS: Bilirubin Negative (Negative); Blood, Urine Moderate (Negative); Clarity Cloudy (Clear); Glucose, Urine (Dipstick) Negative (Negative); Leukocyte Trace (Negative); Nitrite Positive (Negative); Protein, Urine (Dipstick) > or equal to 300 mg/dL (Neg-Trace); Specific Gravity, Urine 1.025 (1.005-1.030)
[2018-01-27 01:06] LABS: Bacteria/HPF 4+ HPF (None Seen); Renal Epithelial 0-3 HPF (0-3); Squamous Epithelial 0-3 HPF (0-3); Transitional Epithelial 0-3 HPF (0-3)
[2018-01-27 01:07] LABS: Other Casts/LPF 7-10 MIXED CASTS LPF (0-3 Hyaline)
[2018-01-27] MEDS: Acetaminophen 325 MG TAB PO PRN (02:29)
[2018-01-27] MEDS ORDERED: Sodium Chloride 0.9% 1,000 ML IV SCH (02:30)
[2018-01-27] MEDS: cefTRIAXone\\ROCEPHIN 2 GM in Sodium Chloride 0.9% 100 ML IVPB SCH (02:46)
[2018-01-27] MEDS: HumaLOG 300 UNITS/3 ML VIAL SC SCH ×2 (08:18→16:50)
[2018-01-27] MEDS: Enoxaparin Sodium 40 MG/0.4 ML SYRINGE SC SCH (08:19)
[2018-01-27] MEDS: Carvedilol 6.25 MG TAB PO SCH ×2 (08:19→16:50)
[2018-01-27] MEDS: Lantus 1000 UNITS/10 ML VIAL SC SCH ×2 (08:19→21:00)
[2018-01-27] MEDS: Gabapentin 300 MG CAP PO SCH ×2 (08:20→21:01)
[2018-01-27] MEDS: FLUoxetine HCl 20 MG CAP PO SCH (08:20)
[2018-01-27] MEDS: Lisinopril 10 MG TAB PO SCH (08:20)
[2018-01-27] MEDS: metFORMIN 500 MG TAB PO SCH ×2 (08:21→21:01)
--- NOTE | 2018-01-27 08:55 | RAD ---
CHEST 1 VIEW: COMPARISON: 10/01/17. HISTORY: Fever. FINDINGS: Sternotomy wires are noted. Heart is enlarged. Pulmonary vessels and hilum are normal. Costophreni c angles are clear. No consolidation or mass. No pneumothorax or osseous abnormality. IMPRESSION: No acute cardiopulmonary process. POS: [facility]
--- NOTE | 2018-01-27 12:24 | PRG ---
DATE OF SERVICE: 01/27/2018 SUBJECTIVE: During the night, the patient was not feeling as well, seemed a little more lethargic th an usual. He was also running a temperature that went up to a max of 100.9. Lab was ordered that in cluded a CBC that showed an H and H of 9.4 and 28.3 with a white blood cell count of 16,800 with 83% segs, 8% lymphocytes, and a platelet count of 531,000. Sodium 133 and potassium 4.1. His BUN was 19 , creatinine 1.06, GFR was 70, and glucose was 126. The patient had been voiding intermittently, but then had incontinence spell. Carl catheter was replaced and patient ordered to obtain a UA. The U A was reviewed and showed positive nitrites, moderate blood, trace leukocytes. Microscopy showed 11- 20 rbc's, 11-20 wbc's, and there was 4+ bacteria. Culture of this was arranged and 2 blood cultures were obtained. The patient was started on IV fluids at 75 mL per hour. Also, after the cultures of the blood and urine was obtained, he was started on ceftriaxone 2 grams IV push daily. Now, this mor neelam, 01/27/2018, he says he is feeling good. He has no complaint. He has had no more fever. OBJECTIVE: GENERAL: The patient lying in bed and later was up in a chair. He appears comfortable, in no distre ss. VITAL SIGNS: His temperature is 97.9, pulse 73, blood pressure 137/65, respirations 20, O2 sat 98% o n room air, blood pressure 137/65. LUNGS: Clear. He does have a very slight cough. HEART: Regular rate. ABDOMEN: Soft, nontender. Urine in his Carl is clear. EXTREMITIES: No edema. Incision was looked at and is very clean. There is no surrounding redness and no drainage. Chest x- ray was done this morning and the x-ray shows lungs to be clear, costophrenic angles were clear. The re was no evidence of consolidation and the pulmonary vasculature appeared normal. ASSESSMENT: 1. Generalized weakness and deconditioning. A. Secondary to his low back surgery on 01/16/2018. B. Presently, he has not been up ambulating since his surgery. C. Improved, transferring easier and walking a little further as of 01/27/2018. 2. Hospitalized at [facility] from 01/16/2018 until 01/18/2018 for severe spondylosis of the lumbar spine with high grade stenosis for which he underwent a decompressive surgery. 3. Severe spondylosis of the lumbar spine with high grade spinal stenosis and neurogenic claudicatio n at L1-L2, L3-L4 and L5-S1 level. A. Status post decompressive laminectomy, medial facetectomy, foraminotomy at L1-L2, L3-L4, and L5-S 1 with closure of durotomy on the right L1 on 01/16/[address] Mariel Kwon. B. Complicated by postop urinary retention requiring placement of Carl catheter on 01/18/2018. C. Healing well. Incision very clean with no drainage as of 01/27/2018 and no redness. 4. Postop urinary retention. A. Requiring placement of Carl catheter on 01/18/2018. B. History of postop urinary retention with coronary artery bypass surgery in 09/2017. C. The patient would like to try voiding without the catheter as of 01/25/2018. D. Voiding without any difficulty since catheter removed on 01/25/2018 as of 01/26/2018. E. Had episode of incontinence on the late night of 01/26/2018, and could not get a urine specimen. Carl catheter reinserted and the urine is clear. 5. Coronary artery disease. A. Status post myocardial infarction in 2009 and again in 2011. B. Status post stent x1, following the myocardial infarction in 2009 and second stent applied after the myocardial infarction in 2011. C. Coronary artery bypass x3 after an abnormal MPI. Heart cath showed triple-vessel disease, 2017. D. Echocardiogram on 09/29/2017 showed ejection fraction of 35%-40% with apex akinetic and atrial fi brillation, mild increased left ventricular size. 6. Diabetes type 2. A. Insulin-dependent. B. Controlled, improving. Hemoglobin A1c was 8.7. FBS 102 as of 01/26/2018. C. Complicated by peripheral neuropathy. 7. Hypercholesterolemia. 8. Chronic kidney disease, mild. A. Moderate chronic kidney disease with a GFR of 56. B. GFR up to 84 as of 01/23/2018. 9. Peripheral vascular disease. A. Status post stent placed in the lower extremities in 09/2015. 10. Episode of atrial fibrillation. History of following coronary artery bypass, 09/2017. 11. Anemia. A. Hemoglobin 9.3 as of 01/23/2018. B. Etiology probably secondary to recent back surgery. 12. Depression. A. Improved as of 01/26/2018. 13. Urinary tract infection. A. Presenting with low-grade fever and some mild lethargy on the evening of 01/26/2018. B. Cultures of blood and urine obtained and patient started on IV Rocephin. PLAN: Overall, the patient looks better. The fever that he had last night is suspected from urinary tract infection. We will continue the IV ceftriaxone and await the results of the culture. We will stop the IV fluids, probably be able to discontinue the Carl catheter tomorrow.
[2018-01-27] MEDS: Rosuvastatin 10 MG TAB PO SCH (21:01)
[2018-01-28] MEDS: cefTRIAXone\\ROCEPHIN 2 GM in Sodium Chloride 0.9% 100 ML IVPB SCH (03:19)
[2018-01-28 05:43] LABS: Anion Gap 11 mmol/L (10-20); BUN (Urea Nitrogen) 24 mg/dL (8.4-25.7); Calc. Creatinine Clearance 95 mL/min (70-130); Calcium 8.5 mg/dL (7.8-10.44); Carbon Dioxide 26 mmol/L (23-31); Chloride 101 mmol/L (98-107); Estimated GFR-MDRD 67; Glucose 155 mg/dL (80-115); Sodium 134 mmol/L (136-145)
[2018-01-28 06:10] LABS: Anisocytosis SLIGHT = 6-15 cells (100X) (0-5/hpf); Eosinophils 1 % (0-10); Hemoglobin 8.6 g/dL (14.0-18.0); Hypochromia MODERATE=16-30 cells (100X) (0-5/hpf); Lymphocytes 4 % (21-51); MDiff Complete? YES; Mean Corpuscular HGB CONC 33.6 g/dL (32.0-36.0); Mean Corpuscular Hemoglobin 27.3 pg (27.0-31.0); Mean Corpuscular Volume 81.4 fL (78.0-98.0); Mean Platelet Volume 6.2 fL (7.4-10.4); Monocytes 9 % (0-10); Neutrophil 83 % (42-75); PLT Morphology Comment Appears Adequate; Platelet Count 474 thou/uL (130-400); Poikilocytosis SLIGHT = 6-15 cells (100X) (0-5/hpf); RBC Distribution Width 13.8 % (11.5-14.5); RBC Morphology Abnormal; Reactive Lymphocytes 3 % (0-10); Red Blood Cell (RBC) Count 3.14 mill/uL (4.70-6.10); White Blood Cell (WBC) Count 21.9 thou/uL (4.8-10.8)
[2018-01-28] MEDS: HumaLOG 300 UNITS/3 ML VIAL SC SCH ×2 (07:49→17:07)
[2018-01-28] MEDS: Lantus 1000 UNITS/10 ML VIAL SC SCH ×2 (07:52→20:35)
[2018-01-28] MEDS: Carvedilol 6.25 MG TAB PO SCH ×2 (07:56→17:06)
[2018-01-28] MEDS: Enoxaparin Sodium 40 MG/0.4 ML SYRINGE SC SCH (09:21)
[2018-01-28] MEDS: Gabapentin 300 MG CAP PO SCH ×2 (09:21→20:36)
[2018-01-28] MEDS: FLUoxetine HCl 20 MG CAP PO SCH (09:21)
[2018-01-28] MEDS: Lisinopril 10 MG TAB PO SCH (09:22)
[2018-01-28] MEDS: metFORMIN 500 MG TAB PO SCH ×2 (09:22→20:36)
[2018-01-28] MEDS: Meropenem 1 GM in Sodium Chloride 0.9% 100 ML IVPB SCH ×2 (14:25→22:23)
[2018-01-28] MEDS: Rosuvastatin 10 MG TAB PO SCH (20:36)
[2018-01-28] MEDS ORDERED: Cefepime 2 GM in Sodium Chloride 0.9% 100 ML IVPB SCH (21:00)
[2018-01-29] MEDS: Meropenem 1 GM in Sodium Chloride 0.9% 100 ML IVPB SCH ×3 (05:34→22:23)
[2018-01-29 05:59] LABS: Anion Gap 13 mmol/L (10-20); BUN (Urea Nitrogen) 20 mg/dL (8.4-25.7); Calc. Creatinine Clearance 120 mL/min (70-130); Calcium 8.6 mg/dL (7.8-10.44); Carbon Dioxide 25 mmol/L (23-31); Chloride 101 mmol/L (98-107); Estimated GFR-MDRD 89; Glucose 136 mg/dL (80-115); Potassium 4.1 mmol/L (3.5-5.1); Sodium 135 mmol/L (136-145)
[2018-01-29 06:09] LABS: Anisocytosis SLIGHT = 6-15 cells (100X) (0-5/hpf); Band 1 % (5-11); Eosinophils 2 % (0-10); Hemoglobin 8.4 g/dL (14.0-18.0); Hypochromia MODERATE=16-30 cells (100X) (0-5/hpf); Lymphocytes 7 % (21-51); MDiff Complete? YES; Mean Corpuscular HGB CONC 32.8 g/dL (32.0-36.0); Mean Corpuscular Hemoglobin 26.8 pg (27.0-31.0); Mean Corpuscular Volume 81.5 fL (78.0-98.0); Mean Platelet Volume 5.9 fL (7.4-10.4); Monocytes 9 % (0-10); Neutrophil 76 % (42-75); PLT Morphology Comment Appears Adequate; Platelet Count 503 thou/uL (130-400); Poikilocytosis SLIGHT = 6-15 cells (100X) (0-5/hpf); RBC Morphology Abnormal; Reactive Lymphocytes 5 % (0-10); Red Blood Cell (RBC) Count 3.14 mill/uL (4.70-6.10); White Blood Cell (WBC) Count 15.8 thou/uL (4.8-10.8)
[2018-01-29] MEDS: FLUoxetine HCl 20 MG CAP PO SCH (08:42)
[2018-01-29] MEDS: Gabapentin 300 MG CAP PO SCH ×2 (08:42→20:24)
[2018-01-29] MEDS: Carvedilol 6.25 MG TAB PO SCH ×2 (08:42→17:04)
[2018-01-29] MEDS: Lisinopril 10 MG TAB PO SCH (08:42)
[2018-01-29] MEDS: metFORMIN 500 MG TAB PO SCH ×2 (08:42→20:24)
[2018-01-29] MEDS: HumaLOG 300 UNITS/3 ML VIAL SC SCH ×2 (08:43→17:04)
[2018-01-29] MEDS: Lantus 1000 UNITS/10 ML VIAL SC SCH ×2 (08:43→20:23)
[2018-01-29] MEDS: Enoxaparin Sodium 40 MG/0.4 ML SYRINGE SC SCH (08:44)
--- NOTE | 2018-01-29 18:05 | PRG ---
SDATE OF SERVICE: 01/29/2018 SUBJECTIVE: The patient said he is feeling better. Did not rest well last night, he just had a lot on his mind. Overall, he thinks it is better. He set up a bunch yesterday. He would like to get th e Carl catheter out. OBJECTIVE: GENERAL: The patient is sitting up in bed. He is alert, talkative, looks very comfortable, looks be tter. He appears in no distress. VITAL SIGNS: His temperature is 96, pulse 60, respirations 20, O2 saturation 97% on room air, blood pressure 166/77. LUNGS: Clear. HEART: Regular rate. EXTREMITIES: No edema. Incision has no drainage, no redness. Dressing is dry. GENITOURINARY: Urine in the Carl is clear. LABORATORY DATA: Shows H&H of 9.4 and 25.6, white blood cell count has come down to 15,800 from a hi gh of 21,900 with 76% segs, 1% bands, 7% lymphocytes. Sodium 135, potassium 4.1, BUN 20, creatinine 0.86, glucose 136. Sensitivity report on the blood cultures are pending. ASSESSMENT: 1. Generalized weakness and deconditioning. A. Secondary to his low back surgery on 01/16/2018. B. Improved, transferring easier and walking a little further as of 01/28/2018. C. Improved, transferring easier and walking a little further as of 01/27/2018. 2. Hospitalized at [facility] from 01/16/2018 until 01/18/2018 for severe spondylosis of the lumbar spine with high grade stenosis for which he underwent a decompressive surgery. 3. Severe spondylosis of the lumbar spine with high grade spinal stenosis and neurogenic claudicatio n at L1-L2, L3-L4 and L5-S1 level. A. Status post decompressive laminectomy, medial facetectomy, foraminotomy at L1-L2, L3-L4, and L5-S 1 with closure of durotomy on the right L1 on 01/16/[address] Mariel Kwon. B. Complicated by postop urinary retention requiring placement of Carl catheter on 01/18/2018. C. Healing well. Incision very clean with no drainage as of 01/28/2018 and no redness. 4. Postop urinary retention. A. Requiring placement of Carl catheter on 01/18/2018. B. History of postop urinary retention with coronary artery bypass surgery in 09/2017. C. The patient would like to try voiding without the catheter as of 01/25/2018. D. Voiding without any difficulty since catheter removed on 01/25/2018 as of 01/26/2018. E. Had episode of incontinence on the late night of 01/26/2018, and could not get a urine specimen. Carl catheter reinserted and the urine is clear. F. Catheter will be removed as of 01/28/2018. 5. Coronary artery disease. A. Status post myocardial infarction in 2009 and again in 2011. B. Status post stent x1, following the myocardial infarction in 2009 and second stent applied after the myocardial infarction in 2011. C. Coronary artery bypass x3 after an abnormal MPI. Heart cath showed triple-vessel disease, 2017. D. Echocardiogram on 09/29/2017 showed ejection fraction of 35%-40% with apex akinetic and atrial fi brillation, mild increased left ventricular size. 6. Diabetes type 2. A. Insulin-dependent. B. Controlled, improving. Hemoglobin A1c was 8.7. FBS 102 as of 01/26/2018. C. Complicated by peripheral neuropathy. 7. Hypercholesterolemia. 8. Chronic kidney disease, mild. A. Moderate chronic kidney disease with a GFR of 56. B. GFR up to 84 as of 01/23/2018. 9. Peripheral vascular disease. A. Status post stent placed in the lower extremities in 09/2015. 10. Episode of atrial fibrillation. History of following coronary artery bypass, 09/2017. 11. Anemia. A. Hemoglobin 8.4 as of 01/29/2018. B. Etiology probably secondary to recent back surgery. 12. Depression. A. Improved as of 01/26/2018. 13. Urinary tract infection. A. Presenting with low-grade fever and some mild lethargy on the evening of 01/26/2018. B. Urine culture pending. C. Complicated by bacteremia with Pseudomonas aeruginosa. D. Presently afebrile. 14. Bacteremia secondary to urinary tract infection. A. Blood culture growing Pseudomonas aeruginosa x2. B. Ceftriaxone switched to meropenem on 01/28/2018. C. Improved, afebrile with white blood cell count dropping from a 22,000-15,000. PLAN: The patient looks better. We will continue the IV meropenem for a minimum of 7 day period. A waiting the results of the urine culture and also the sensitivity report on the blood cultures. We w ill redraw two blood cultures today. We will repeat a basic metabolic and CBC in the morning. We wi ll remove Carl catheter. Continue PT.
--- NOTE | 2018-01-29 18:05 | PRG ---
DATE OF SERVICE: 01/28/2018 SUBJECTIVE: The patient said he is feeling better today. He says he is ready to get the catheter ou t. He says he is working with physical therapy and yesterday he said he was up more and he walked up to 18 feet twice with his rolling walker and [id number] assistance. His transfer is still requiring some moderate assistance. OBJECTIVE: GENERAL: The patient is lying in bed. He is alert, active, very talkative, appears in no distress. VITAL SIGNS: His temperature is 99.1, pulse 65, blood pressure 137/65, respirations are 18, O2 sat 9 7% on room air, blood pressure 140/67. The patient has had no temperature over 99.5 in the last 24 h ours. The patient had an excellent urinary output. The urine is clear. LUNGS: Clear. HEART: Regular rate. EXTREMITIES: No edema. LABORATORY DATA: H and H is 8.6 and 25.6, white blood cell count 21,900 with 83% segs, 4% lymphocyte s, platelet count 474,000. Sodium 134, potassium 4, BUN 20, creatinine 1.09, GFR 67, glucose 155. U rine culture is pending. Blood culture, 2 of 2 blood cultures are growing a Pseudomonas aeruginosa. Cultures are pending. ASSESSMENT: 1. Generalized weakness and deconditioning. A. Secondary to his low back surgery on 01/16/2018. B. Presently, he has not been up ambulating since his surgery. C. Improved. Transferring with moderate assistance. Walking up to 18 feet x2 as of 01/28/2018. 2. Hospitalized at [facility] from 01/16/2018 until 01/18/2018 for severe spondylosis of the lumbar spine with high grade stenosis for which he underwent a decompressive surgery. 3. Severe spondylosis of the lumbar spine with high grade spinal stenosis and neurogenic claudicatio n at L1-L2, L3-L4 and L5-S1 level. A. Status post decompressive laminectomy, medial facetectomy, foraminotomy at L1-L2, L3-L4, and L5-S 1 with closure of durotomy on the right L1 on 01/16/[address] Mariel Kwon. B. Complicated by postop urinary retention requiring placement of Carl catheter on 01/18/2018. C. Healing well. Incision very clean with no drainage as of 01/28/2018 and no redness. 4. Postop urinary retention. A. Requiring placement of Carl catheter on 01/18/2018. B. History of postop urinary retention with coronary artery bypass surgery in 09/2017. C. The patient would like to try voiding without the catheter as of 01/25/2018. D. Voiding without any difficulty since catheter removed on 01/25/2018 as of 01/26/2018. E. Had episode of incontinence on the late night of 01/26/2018, and could not get a urine specimen. Carl catheter reinserted and the urine is clear. 5. Coronary artery disease. A. Status post myocardial infarction in 2009 and again in 2011. B. Status post stent x1, following the myocardial infarction in 2009 and second stent applied after the myocardial infarction in 2011. C. Coronary artery bypass x3 after an abnormal MPI. Heart cath showed triple-vessel disease, 2017. D. Echocardiogram on 09/29/2017 showed ejection fraction of 35%-40% with apex akinetic and atrial fi brillation, mild increased left ventricular size. 6. Diabetes type 2. A. Insulin-dependent. B. Controlled, improving. Hemoglobin A1c was 8.7. FBS 102 as of 01/26/2018. C. Complicated by peripheral neuropathy. 7. Hypercholesterolemia. 8. Chronic kidney disease, mild. A. Moderate chronic kidney disease with a GFR of 56. B. GFR up to 84 as of 01/23/2018. 9. Peripheral vascular disease. A. Status post stent placed in the lower extremities in 09/2015. 10. Episode of atrial fibrillation. History of following coronary artery bypass, 09/2017. 11. Anemia. A. Hemoglobin 9.3 as of 01/23/2018. B. Etiology probably secondary to recent back surgery. 12. Depression. A. Improved as of 01/26/2018. 13. Urinary tract infection. A. Presenting with low-grade fever and some mild lethargy on the evening of 01/26/2018. B. Complicated by bacteremia with Pseudomonas aeruginosa as of 01/28/2018. C. Urine culture pending. 14. Bacteremia with Pseudomonas aeruginosa. A. Secondary to urinary tract infection. B. Culture reported out 01/28/2018, sensitivity pending. PLAN: The patient clinically is doing better, but there is an increase in his WBC count. We will di scontinue the ceftriaxone and place the patient instead on meropenem 1 gram IV every 8 hours for a mi nimum of an 8-day period. We will repeat blood cultures x2 in the morning. We will leave the Carl catheter in a little longer to ensure that there is no retention until the infection is better contro lled.
[2018-01-29] MEDS: Rosuvastatin 10 MG TAB PO SCH (20:24)
[2018-01-29] MEDS: Acetaminophen 325 MG TAB PO PRN (22:23)
[2018-01-30] MEDS ORDERED: Meropenem 1 GM VIAL ONE (04:01)
[2018-01-30] MEDS: Meropenem 1 GM in Sodium Chloride 0.9% 100 ML IVPB SCH ×3 (05:18→22:58)
[2018-01-30 05:20] LABS: #Basophils 0.1 thou/uL (0.0-0.2); #Eosinphils 0.4 thou/uL (0.0-0.7); #Lymphocytes 2.6 thou/uL (1.20-3.40); #Monocytes 1.1 thou/uL (0.11-0.59); #Neutrophils 7.2 thou/uL (1.40-6.50); %Eosinophils 3.3 % (0.0-10.0); %Lymphocytes 22.7 % (21.0-51.0); %Monocytes 9.3 % (0.0-10.0); %Neutrophils 63.7 % (42.0-75.0); Hemoglobin 9.4 g/dL (14.0-18.0); Mean Corpuscular HGB CONC 32.3 g/dL (32.0-36.0); Mean Corpuscular Hemoglobin 26.3 pg (27.0-31.0); Mean Corpuscular Volume 81.2 fL (78.0-98.0); Platelet Count 601 thou/uL (130-400); Red Blood Cell (RBC) Count 3.59 mill/uL (4.70-6.10); White Blood Cell (WBC) Count 11.2 thou/uL (4.8-10.8)
[2018-01-30 05:38] LABS: Anion Gap 14 mmol/L (10-20); BUN (Urea Nitrogen) 22 mg/dL (8.4-25.7); Calc. Creatinine Clearance 110 mL/min (70-130); Carbon Dioxide 26 mmol/L (23-31); Chloride 103 mmol/L (98-107); Estimated GFR-MDRD 80; Glucose 114 mg/dL (80-115); Potassium 4.5 mmol/L (3.5-5.1); Sodium 138 mmol/L (136-145)
[2018-01-30] MEDS: Gabapentin 300 MG CAP PO SCH ×2 (08:19→20:05)
[2018-01-30] MEDS: metFORMIN 500 MG TAB PO SCH (08:19)
[2018-01-30] MEDS: FLUoxetine HCl 20 MG CAP PO SCH (08:19)
[2018-01-30] MEDS: Lisinopril 10 MG TAB PO SCH (08:19)
[2018-01-30] MEDS: Enoxaparin Sodium 40 MG/0.4 ML SYRINGE SC SCH (08:19)
[2018-01-30] MEDS: Carvedilol 6.25 MG TAB PO SCH ×2 (08:19→16:47)
[2018-01-30] MEDS: HumaLOG 300 UNITS/3 ML VIAL SC SCH ×2 (08:20→16:47)
[2018-01-30] MEDS: Lantus 1000 UNITS/10 ML VIAL SC SCH ×2 (08:20→20:06)
[2018-01-30] MEDS: Saccharomyces boulardii 250 MG CAP PO SCH (08:35)
--- NOTE | 2018-01-30 11:37 | PRG ---
DATE OF SERVICE: 01/30/2018 SUBJECTIVE: The patient said he is urinating without trouble. He is complaining that he is having f requent watery brown bowel movements, needs to do something. He thinks this is related to medication . OBJECTIVE: The patient is sitting up in a geriatric chair. He is alert, talkative, and appears in n o acute distress. His vital signs shows a temperature of 97.5. He has had no fever over the last 24 hours, his pulse 70, respirations 20, O2 sat 98% on room air, blood pressure 146/67. Lungs are cyn r. Heart, regular rate. Incision on the low back is healing well. Extremities have no edema. Lab shows an H&H of 9.4 and 29.2, white cell count down to 11,200 with 64% segs, 23% lymphocytes, and a platelet count of 601. Sodium 138, potassium 4.5, BUN 22, creatinine 0.94, GFR 80. FBS 114. Blo od cultures drawn on 01/26/2018 had Pseudomonas aeruginosa x2. The organism is sensitive to the josh penem, to cefepime and ceftazidime and Cipro and levofloxacin. Repeat blood cultures drawn on 2017 have no growth to date x2. Urine culture was apparently not collected on the 01/26/2018 and a r epeat urine had been ordered for culture, but results are pending. ASSESSMENT: 1. Generalized weakness and deconditioning. A. Secondary to his low back surgery on 01/16/2018. B. Improved, transferring easier and walking a little further as of 01/28/2018. C. Improved, transferring easier and walking a little further as of 01/30/2018. 2. Hospitalized at [facility] from 01/16/2018 until 01/18/2018 for severe spondylosis of the lumbar spine with high grade stenosis for which he underwent a decompressive surgery. 3. Severe spondylosis of the lumbar spine with high grade spinal stenosis and neurogenic claudicatio n at L1-L2, L3-L4 and L5-S1 level. A. Status post decompressive laminectomy, medial facetectomy, foraminotomy at L1-L2, L3-L4, and L5-S 1 with closure of durotomy on the right L1 on 01/16/[address] L[address] Seth III Doyle. B. Complicated by postop urinary retention requiring placement of Carl catheter on 01/18/2018. C. Healing well. Incision very clean with no drainage as of 01/30/2018 and no redness. 4. Postop urinary retention. A. Requiring placement of Carl catheter on 01/18/2018. B. History of postop urinary retention with coronary artery bypass surgery in 09/2017. C. The patient would like to try voiding without the catheter as of 01/25/2018. D. Voiding without any difficulty since catheter removed on 01/25/2018 as of 01/26/2018. E. Had episode of incontinence on the late night of 01/26/2018, and could not get a urine specimen. Carl catheter reinserted and the urine is clear. F. Catheter removed on 01/28/2018. Urinating without difficulty as of 01/30/2018. 5. Coronary artery disease. A. Status post myocardial infarction in 2009 and again in 2011. B. Status post stent x1, following the myocardial infarction in 2009 and second stent applied after the myocardial infarction in 2011. C. Coronary artery bypass x3 after an abnormal MPI. Heart cath showed triple-vessel disease, 2017. D. Echocardiogram on 09/29/2017 showed ejection fraction of 35%-40% with apex akinetic and atrial fi brillation, mild increased left ventricular size. 6. Diabetes type 2. A. Insulin-dependent. B. Controlled, improving. Hemoglobin A1c was 8.7. FBS 102 as of 01/26/2018. C. Complicated by peripheral neuropathy. 7. Hypercholesterolemia. 8. Chronic kidney disease, mild. A. Moderate chronic kidney disease with a GFR of 56. B. GFR 80 as of 01/30/2018. 9. Peripheral vascular disease. A. Status post stent placed in the lower extremities in 09/2015. 10. Episode of atrial fibrillation. History of following coronary artery bypass, 09/2017. 11. Anemia. A. Hemoglobin 8.4 as of 01/29/2018. B. Etiology probably secondary to recent back surgery. C. Hemoglobin up to 9.4 as of 01/30/2018. 12. Depression. A. Improved as of 01/26/2018. 13. Urinary tract infection. A. Presenting with low-grade fever and some mild lethargy on the evening of 01/26/2018. B. Urine culture pending. C. Complicated by bacteremia with Pseudomonas aeruginosa. D. Presently afebrile. 14. Bacteremia secondary to urinary tract infection. A. Blood cultures from 01/26/2018 growing Pseudomonas aeruginosa with organism sensitive to meropene m. B. Ceftriaxone switched to meropenem on 01/28/2018. C. Repeat blood cultures from 01/29/2018 have no growth x2. D. Improved, remains afebrile with a normalizing white blood cell count. 15. Diarrhea, possibly secondary to the MiraLax and the metformin. PLAN: We will continue the IV meropenem for at least a 7 day period and then we will switch him to o ral antibiotics. The organism was also sensitive to Cipro and Levaquin, either of these would be acc eptable. Continue PT, OT. Will place the patient on probiotic.
[2018-01-30] MEDS: Acetaminophen 325 MG TAB PO PRN (20:05)
[2018-01-30] MEDS: Rosuvastatin 10 MG TAB PO SCH (20:05)
[2018-01-31] MEDS: Meropenem 1 GM in Sodium Chloride 0.9% 100 ML IVPB SCH ×3 (06:35→21:42)
[2018-01-31] MEDS: Gabapentin 300 MG CAP PO SCH ×2 (07:47→20:57)
[2018-01-31] MEDS: FLUoxetine HCl 20 MG CAP PO SCH ×2 (07:47→08:35)
[2018-01-31] MEDS: HumaLOG 300 UNITS/3 ML VIAL SC SCH ×2 (07:48→16:43)
[2018-01-31] MEDS: Lisinopril 10 MG TAB PO SCH (07:50)
[2018-01-31] MEDS: Enoxaparin Sodium 40 MG/0.4 ML SYRINGE SC SCH (07:50)
[2018-01-31] MEDS: Carvedilol 6.25 MG TAB PO SCH ×2 (08:22→16:45)
[2018-01-31] MEDS: Lantus 1000 UNITS/10 ML VIAL SC SCH ×2 (08:23→20:57)
[2018-01-31] MEDS: Saccharomyces boulardii 250 MG CAP PO SCH (08:23)
--- NOTE | 2018-01-31 08:56 | PRG ---
DATE OF SERVICE: 01/31/2018 SUBJECTIVE: The patient said he is feeling better. He is not having any trouble urinating. He says he is still going back and forth to the bathroom frequently. Does not want to take any of his oral medication in the event they are contributing. His metformin was stopped, but he did receive the mor neelam dose prior to the discontinuation order. OBJECTIVE: The patient is sitting up in a chair. He is alert, appears comfortable, in no distress. His vital signs show a temperature of 97.1, his respirations are 20, pulse 91, O2 sat 99% on room ai r, blood pressure 175/83. Lungs are clear. Heart, regular rate. Extremities, no edema. Incision i s healing well. The patient refused any lab work this morning. His glucometer check fasting was 177. His urine cult ure that was collected on 01/28/2018 grew Pseudomonas aeruginosa. [place] count was only 5000, but th is was drawn after he has been on antibiotics since the initial urine prior to starting this was not collected. This is the same organism that has grown in his blood. The repeat blood cultures drawn o n 01/28/2018 have no growth. ASSESSMENT: 1. Generalized weakness and deconditioning. A. Secondary to his low back surgery on 01/16/2018. B. Improved, transferring easier and walking a little further as of 01/28/2018. C. Improved as of 01/31/2018. 2. Hospitalized at [facility] from 01/16/2018 until 01/18/2018 for severe spondylosis of the lumbar spine with high grade stenosis for which he underwent a decompressive surgery. 3. Severe spondylosis of the lumbar spine with high grade spinal stenosis and neurogenic claudicatio n at L1-L2, L3-L4 and L5-S1 level. A. Status post decompressive laminectomy, medial facetectomy, foraminotomy at L1-L2, L3-L4, and L5-S 1 with closure of durotomy on the right L1 on 01/16/[address] Mariel Kwon. B. Complicated by postop urinary retention requiring placement of Carl catheter on 01/18/2018. C. Healing well. Incision very clean with no drainage as of 01/31/2018 and no redness. 4. Postop urinary retention. A. Requiring placement of Carl catheter on 01/18/2018. B. History of postop urinary retention with coronary artery bypass surgery in 09/2017. C. The patient would like to try voiding without the catheter as of 01/25/2018. D. Voiding without any difficulty since catheter removed on 01/25/2018 as of 01/26/2018. E. Had episode of incontinence on the late night of 01/26/2018, and could not get a urine specimen. Carl catheter reinserted and the urine is clear. F. Catheter removed on 01/28/2018. Urinating without difficulty as of 01/31/2018. 5. Coronary artery disease. A. Status post myocardial infarction in 2009 and again in 2011. B. Status post stent x1, following the myocardial infarction in 2009 and second stent applied after the myocardial infarction in 2011. C. Coronary artery bypass x3 after an abnormal MPI. Heart cath showed triple-vessel disease, 2017. D. Echocardiogram on 09/29/2017 showed ejection fraction of 35%-40% with apex akinetic and atrial fi brillation, mild increased left ventricular size. 6. Diabetes type 2. A. Insulin-dependent. B. Controlled, improving. Hemoglobin A1c was 8.7. FBS 102 as of 01/26/2018. C. Complicated by peripheral neuropathy. 7. Hypercholesterolemia. 8. Chronic kidney disease, mild. A. Moderate chronic kidney disease with a GFR of 56. B. GFR 80 as of 01/30/2018. 9. Peripheral vascular disease. A. Status post stent placed in the lower extremities in 09/2015. 10. Episode of atrial fibrillation. History of following coronary artery bypass, 09/2017. 11. Anemia. A. Hemoglobin 8.4 as of 01/29/2018. B. Etiology probably secondary to recent back surgery. C. Hemoglobin up to 9.4 as of 01/30/2018. 12. Depression. A. Improved as of 01/26/2018. 13. Urinary tract infection. A. Presenting with low-grade fever and some mild lethargy on the evening of 01/26/2018. B. Urine culture that was drawn after initiation of antibiotics is growing Pseudomonas aeruginosa. Culture was from 01/28/2018. C. Complicated by bacteremia with Pseudomonas aeruginosa. D. Presently afebrile. 14. Bacteremia secondary to urinary tract infection. A. Blood cultures from 01/26/2018 growing Pseudomonas aeruginosa with organism sensitive to meropene m. B. Ceftriaxone switched to meropenem on 01/28/2018. C. Repeat blood cultures from 01/29/2018 have no growth x2. D. Improved, remains afebrile. 15. Diarrhea, a little better today as of 01/31/2018. PLAN: Patient will be encouraged to take his medication, for sure the insulin. We will order stools for C and S and C. difficile and occult blood and lactoferrin. Continue PT and OT. Patient is due to see Dr. Kwon, his neurosurgeon, tomorrow. Arrangements for transportation have been made.
[2018-01-31] MEDS ORDERED: Sodium Chloride Irrig Solution 250 ML BOT ONE (11:41)
[2018-01-31 15:39] VITALS: BMI 27.8
[2018-01-31] MEDS: Acetaminophen 325 MG TAB PO PRN (20:57)
[2018-01-31] MEDS: Rosuvastatin 10 MG TAB PO SCH (20:57)
[2018-02-01] MEDS: Meropenem 1 GM in Sodium Chloride 0.9% 100 ML IVPB SCH ×4 (05:17→22:08)
[2018-02-01] MEDS: Carvedilol 6.25 MG TAB PO SCH ×2 (09:07→17:58)
[2018-02-01] MEDS: Gabapentin 300 MG CAP PO SCH ×2 (09:07→20:03)
[2018-02-01] MEDS: Lisinopril 10 MG TAB PO SCH (09:07)
[2018-02-01] MEDS: Lantus 1000 UNITS/10 ML VIAL SC SCH ×2 (09:08→20:02)
[2018-02-01] MEDS: Saccharomyces boulardii 250 MG CAP PO SCH (09:08)
[2018-02-01] MEDS: FLUoxetine HCl 20 MG CAP PO SCH (09:08)
[2018-02-01] MEDS: Enoxaparin Sodium 40 MG/0.4 ML SYRINGE SC SCH (09:08)
[2018-02-01] MEDS: HumaLOG 300 UNITS/3 ML VIAL SC SCH ×2 (09:09→17:57)
--- NOTE | 2018-02-01 10:06 | PRG ---
DATE OF SERVICE: 02/01/2018 SUBJECTIVE: The patient said he is feeling a lot better today. He is having no trouble voiding. Th e patient is not having the frequent liquid bowel movements. This morning he had one soft stool some formed elements. The patient is scheduled to go see his neurosurgeon today. The patient has been r efusing some of his medicines. His metformin was stopped in the event this was contributing to his d iarrhea. He has not wanted to take some of his medicines. I have encouraged him to take carvedilol and the lisinopril. OBJECTIVE: The patient is sitting up in chair, he is very talkative, looks much better and seems amanda y content and in no distress. His temperature is 97.4, pulse 71, respirations 20, O2 sat 98% on room air, blood pressure 164/77. Lungs are clear. Heart, regular rate. Extremities, no edema. Incisio n on the low back is healing well. ASSESSMENT: 1. Generalized weakness and deconditioning. A. Secondary to his low back surgery on 01/16/2018. B. Improved, transferring easier and walking further as of 02/01/2018. 2. Hospitalized at [facility] from 01/16/2018 until 01/18/2018 for severe spondylosis of the lumbar spine with high grade stenosis for which he underwent a decompressive surgery. 3. Severe spondylosis of the lumbar spine with high grade spinal stenosis and neurogenic claudicatio n at L1-L2, L3-L4 and L5-S1 level. A. Status post decompressive laminectomy, medial facetectomy, foraminotomy at L1-L2, L3-L4, and L5-S 1 with closure of durotomy on the right L1 on 01/16/[address] Mariel Kwon. B. Catheter has since been removed and he is voiding without difficulty as of 02/01/2018. C. Healing well. Incision very clean with no drainage as of 02/01/2018 and no redness. 4. Postop urinary retention. A. Requiring placement of Carl catheter on 01/18/2018. B. History of postop urinary retention with coronary artery bypass surgery in 09/2017. C. Voiding without a catheter without any difficulty as of 02/01/2018. 5. Coronary artery disease. A. Status post myocardial infarction in 2009 and again in 2011. B. Status post stent x1, following the myocardial infarction in 2009 and second stent applied after the myocardial infarction in 2011. C. Coronary artery bypass x3 after an abnormal MPI. Heart cath showed triple-vessel disease, 2017. D. Echocardiogram on 09/29/2017 showed ejection fraction of 35%-40% with apex akinetic and atrial fi brillation, mild increased left ventricular size. 6. Diabetes type 2. A. Insulin-dependent. B. Controlled, improving. Hemoglobin A1c was 8.7. FBS 102 as of 01/26/2018. C. Complicated by peripheral neuropathy. 7. Hypercholesterolemia. 8. Chronic kidney disease, mild. A. Moderate chronic kidney disease with a GFR of 56. B. GFR 80 as of 01/30/2018. 9. Peripheral vascular disease. A. Status post stent placed in the lower extremities in 09/2015. 10. Episode of atrial fibrillation. History of following coronary artery bypass, 09/2017. 11. Anemia. A. Hemoglobin 8.4 as of 01/29/2018. B. Etiology probably secondary to recent back surgery. C. Hemoglobin up to 9.4 as of 01/30/2018. 12. Depression. A. Improved as of 02/01/2018. 13. Urinary tract infection. A. Presenting with low-grade fever and some mild lethargy on the evening of 01/26/2018. B. Urine culture that was drawn after initiation of antibiotics is growing Pseudomonas aeruginosa. Culture was from 01/28/2018. C. Complicated by bacteremia with Pseudomonas aeruginosa. D. Afebrile and asymptomatic as of 02/01/2018. 14. Bacteremia secondary to urinary tract infection. A. Blood cultures from 01/26/2018 growing Pseudomonas aeruginosa with organism sensitive to meropene m. B. Ceftriaxone switched to meropenem on 01/28/2018. C. Repeat blood cultures from 01/29/2018 have no growth x2. D. Improved, remains afebrile and remains on the meropenem as of 02/01/2018. 15. Diarrhea. A. Resolving as of 02/01/2018. PLAN: We will continue the IV meropenem for a total of 7 days IV. This was started on 01/28/2018 an d 7 days will complete on 02/04/2018. We will then switch to an oral antibiotic for an additional 7 days. Encourage the patient to take his carvedilol and lisinopril. Continue his insulin. Continue PT, OT. The patient is due to see his neurosurgeon, Dr. Kwon today.
[2018-02-01] MEDS: Rosuvastatin 10 MG TAB PO SCH (20:03)
[2018-02-01] MEDS: Acetaminophen 325 MG TAB PO PRN (20:09)
[2018-02-02] MEDS: Meropenem 1 GM in Sodium Chloride 0.9% 100 ML IVPB SCH ×3 (05:24→22:03)
[2018-02-02] MEDS: Saccharomyces boulardii 250 MG CAP PO SCH (08:59)
[2018-02-02] MEDS: Enoxaparin Sodium 40 MG/0.4 ML SYRINGE SC SCH (08:59)
[2018-02-02] MEDS: HumaLOG 300 UNITS/3 ML VIAL SC SCH ×2 (09:00→17:04)
[2018-02-02] MEDS: Carvedilol 6.25 MG TAB PO SCH ×2 (09:00→17:03)
[2018-02-02] MEDS: FLUoxetine HCl 20 MG CAP PO SCH (09:00)
[2018-02-02] MEDS: Gabapentin 300 MG CAP PO SCH ×2 (09:00→20:34)
[2018-02-02] MEDS: Lantus 1000 UNITS/10 ML VIAL SC SCH ×2 (09:00→20:35)
[2018-02-02] MEDS: Lisinopril 10 MG TAB PO SCH (09:04)
--- NOTE | 2018-02-02 09:53 | PRG ---
DATE OF SERVICE: 02/02/2018 SUBJECTIVE: The patient says he is feeling better. He says he is urinating fine. He has not had an y more diarrhea, had a normal bowel movement this morning. OBJECTIVE: The patient is sitting up in a chair, has just returned from his walk around to physical therapy. He appears very comfortable in no distress. Vital signs show a temperature 98.1, pulse 69, respirations 18, O2 saturation 98% on room air, blood pressure 160/74. Lungs were clear. Heart, re gular rate. Incision on the midline of the lumbar region is healing well. All the chayo were polo nasima by his neurosurgeon, Dr. Kwon yesterday. Extremities; no edema. His FBS this morning was 155. ASSESSMENT: 1. Generalized weakness and deconditioning. A. Secondary to his low back surgery on 01/16/2018. B. Improved, transferring easier and walking further as of 02/02/2018. 2. Hospitalized at [facility] from 01/16/2018 until 01/18/2018 for severe spondylosis of the lumbar spine with high grade stenosis for which he underwent a decompressive surgery. 3. Severe spondylosis of the lumbar spine with high grade spinal stenosis and neurogenic claudicatio n at L1-L2, L3-L4 and L5-S1 level. A. Status post decompressive laminectomy, medial facetectomy, foraminotomy at L1-L2, L3-L4, and L5-S 1 with closure of durotomy on the right L1 on 01/16/[address] Mariel Kwon. B. Catheter has since been removed and he is voiding without difficulty as of 02/01/2018. C. [place] removed on 02/01/2018. Incision healing well with no redness as of 02/02/2018. 4. Postop urinary retention. A. Requiring placement of Carl catheter on 01/18/2018. B. History of postop urinary retention with coronary artery bypass surgery in 09/2017. C. Voiding without a catheter without any difficulty as of 02/01/2018. 5. Coronary artery disease. A. Status post myocardial infarction in 2009 and again in 2011. B. Status post stent x1, following the myocardial infarction in 2009 and second stent applied after the myocardial infarction in 2011. C. Coronary artery bypass x3 after an abnormal MPI. Heart cath showed triple-vessel disease, 2017. D. Echocardiogram on 09/29/2017 showed ejection fraction of 35%-40% with apex akinetic and atrial fi brillation, mild increased left ventricular size. 6. Diabetes type 2. A. Insulin-dependent. B. Controlled, improving. Hemoglobin A1c was 8.7. FBS 102 as of 01/26/2018. C. Complicated by peripheral neuropathy. 7. Hypercholesterolemia. 8. Chronic kidney disease, mild. A. Moderate chronic kidney disease with a GFR of 56. B. GFR 80 as of 01/30/2018. 9. Peripheral vascular disease. A. Status post stent placed in the lower extremities in 09/2015. 10. Episode of atrial fibrillation. History of following coronary artery bypass, 09/2017. 11. Anemia. A. Hemoglobin 8.4 as of 01/29/2018. B. Etiology probably secondary to recent back surgery. C. Hemoglobin up to 9.4 as of 01/30/2018. 12. Depression. A. Improved as of 02/01/2018. 13. Urinary tract infection. A. Presenting with low-grade fever and some mild lethargy on the evening of 01/26/2018. B. Urine culture that was drawn after initiation of antibiotics is growing Pseudomonas aeruginosa. Culture was from 01/28/2018. C. Complicated by bacteremia with Pseudomonas aeruginosa. D. Afebrile and asymptomatic as of 02/02/2018. 14. Bacteremia secondary to urinary tract infection. A. Blood cultures from 01/26/2018 growing Pseudomonas aeruginosa with organism sensitive to meropene m. B. Ceftriaxone switched to meropenem on 01/28/2018. C. Repeat blood cultures from 01/29/2018 have no growth x2. D. Improved, remains afebrile and remains on the meropenem as of 02/02/2018. 15. Diarrhea. A. Resolved as of 02/02/2018. PLAN: The patient is doing better. Will continue PT, OT. Will probably switch him to oral antibiot ics tomorrow which will be his 7th day on the meropenem.
[2018-02-02] MEDS: Rosuvastatin 10 MG TAB PO SCH (20:33)
[2018-02-03] MEDS: Meropenem 1 GM in Sodium Chloride 0.9% 100 ML IVPB SCH (05:17)
[2018-02-03] MEDS: Lisinopril 10 MG TAB PO SCH (08:28)
[2018-02-03] MEDS: FLUoxetine HCl 20 MG CAP PO SCH (08:28)
[2018-02-03] MEDS: Carvedilol 6.25 MG TAB PO SCH ×2 (08:28→17:05)
[2018-02-03] MEDS: Enoxaparin Sodium 40 MG/0.4 ML SYRINGE SC SCH (08:28)
[2018-02-03] MEDS: Lantus 1000 UNITS/10 ML VIAL SC SCH ×2 (08:29→20:37)
[2018-02-03] MEDS: HumaLOG 300 UNITS/3 ML VIAL SC SCH ×2 (08:31→17:07)
[2018-02-03] MEDS: Gabapentin 300 MG CAP PO SCH ×2 (08:32→20:37)
[2018-02-03] MEDS: Saccharomyces boulardii 250 MG CAP PO SCH (08:35)
[2018-02-03] MEDS ORDERED: Cipro 250 MG TAB PO SCH (09:15)
--- NOTE | 2018-02-03 11:03 | PRG ---
DATE OF SERVICE: 02/03/2018 SUBJECTIVE: The patient said he is feeling very good. He says he is having no trouble with urinatio n, no trouble with any diarrhea. He is making good progress with his physical therapy and walking fu rther. OBJECTIVE: The patient is sitting up in a chair, alert, active, talkative, in very good spirits. Hi s temperature is 96.8, respirations 75, blood pressure was 172/85, but has not yet had morning medica tion, earlier it was 136/71, respirations 18, O2 saturation 98% on room air. Lungs clear. Heart, re gular rate. Extremities, no edema. His stool results came back, it was positive for occult blood, t he stools for lactoferrin were negative. The stool cultures were negative for Shiga 1 and 2. The pa tient is negative for Campylobacter. The patient did have some yeast in the stools, but no enteric p resent and no E. coli 0157 present. His C. diff antigen and toxin were both negative. FBS is 157. ASSESSMENT: 1. Generalized weakness and deconditioning. A. Secondary to his low back surgery on 01/16/2018. B. Continued improvement as of 02/03/2018. 2. Hospitalized at [facility] from 01/16/2018 until 01/18/2018 for severe spondylosis of the lumbar spine with high grade stenosis for which he underwent a decompressive surgery. 3. Severe spondylosis of the lumbar spine with high grade spinal stenosis and neurogenic claudicatio n at L1-L2, L3-L4 and L5-S1 level. A. Status post decompressive laminectomy, medial facetectomy, foraminotomy at L1-L2, L3-L4, and L5-S 1 with closure of durotomy on the right L1 on 01/16/[address] Mariel Kwon. B. Catheter has since been removed and he is voiding without difficulty as of 02/01/2018. C. [place] removed on 02/01/2018. Incision healing well with no redness as of 02/02/2018. 4. Postop urinary retention. A. Requiring placement of Carl catheter on 01/18/2018. B. History of postop urinary retention with coronary artery bypass surgery in 09/2017. C. Voiding without difficulty as of 02/03/2018. 5. Coronary artery disease. A. Status post myocardial infarction in 2009 and again in 2011. B. Status post stent x1, following the myocardial infarction in 2009 and second stent applied after the myocardial infarction in 2011. C. Coronary artery bypass x3 after an abnormal MPI. Heart cath showed triple-vessel disease, 2017. D. Echocardiogram on 09/29/2017 showed ejection fraction of 35%-40% with apex akinetic and atrial fi brillation, mild increased left ventricular size. 6. Diabetes type 2. A. Insulin-dependent. B. Controlled, improving. Hemoglobin A1c was 8.7. FBS 102 as of 01/26/2018. C. Complicated by peripheral neuropathy. 7. Hypercholesterolemia. 8. Chronic kidney disease, mild. A. Moderate chronic kidney disease with a GFR of 56. B. GFR 80 as of 01/30/2018. 9. Peripheral vascular disease. A. Status post stent placed in the lower extremities in 09/2015. 10. Episode of atrial fibrillation. History of following coronary artery bypass, 09/2017. 11. Anemia. A. Hemoglobin 8.4 as of 01/29/2018. B. Etiology probably secondary to recent back surgery. C. Hemoglobin up to 9.4 as of 01/30/2018. 12. Depression. A. Improved as of 02/03/2018. 13. Urinary tract infection. A. Presenting with low-grade fever and some mild lethargy on the evening of 01/26/2018. B. Urine culture that was drawn after initiation of antibiotics is growing Pseudomonas aeruginosa. Culture was from 01/28/2018. C. Complicated by bacteremia with Pseudomonas aeruginosa. D. Afebrile and asymptomatic as of 02/03/2018. 14. Bacteremia secondary to urinary tract infection. A. Blood cultures from 01/26/2018 growing Pseudomonas aeruginosa with organism sensitive to meropene m. B. Ceftriaxone switched to meropenem on 01/28/2018. C. Repeat blood cultures from 01/29/2018 have no growth x2. D. Has completed 7 days of IV meropenem and will be switched to oral antibiotics for 7 days as of . 15. Diarrhea. A. Resolved as of 02/02/2018. B. No recurrence as of 02/03/2018. PLAN: We will discontinue the meropenem and IV access. We will place the patient on Cipro 500 mg b. i.d. for 7 days, which the Pseudomonas aeruginosa is sensitive to. Continue PT and OT.
[2018-02-03] MEDS: Cipro 250 MG TAB PO SCH (20:36)
[2018-02-03] MEDS: Rosuvastatin 10 MG TAB PO SCH (20:37)
[2018-02-04] MEDS: Cipro 250 MG TAB PO SCH ×2 (05:33→20:58)
[2018-02-04] MEDS: Gabapentin 300 MG CAP PO SCH ×2 (08:25→21:00)
[2018-02-04] MEDS: Enoxaparin Sodium 40 MG/0.4 ML SYRINGE SC SCH (08:25)
[2018-02-04] MEDS: Saccharomyces boulardii 250 MG CAP PO SCH (08:25)
[2018-02-04] MEDS: Carvedilol 6.25 MG TAB PO SCH ×2 (08:25→16:34)
[2018-02-04] MEDS: Lisinopril 10 MG TAB PO SCH (08:25)
[2018-02-04] MEDS: Lantus 1000 UNITS/10 ML VIAL SC SCH ×2 (08:25→20:58)
[2018-02-04] MEDS: HumaLOG 300 UNITS/3 ML VIAL SC SCH ×2 (08:25→16:34)
[2018-02-04] MEDS: FLUoxetine HCl 20 MG CAP PO SCH (08:26)
[2018-02-04] MEDS: Rosuvastatin 10 MG TAB PO SCH (21:00)
[2018-02-04] MEDS: Acetaminophen 325 MG TAB PO PRN (21:00)
[2018-02-05] MEDS: Cipro 250 MG TAB PO SCH ×2 (05:15→20:51)
[2018-02-05] MEDS: Gabapentin 300 MG CAP PO SCH ×2 (08:12→20:52)
[2018-02-05] MEDS: FLUoxetine HCl 20 MG CAP PO SCH (08:13)
[2018-02-05] MEDS: Lisinopril 10 MG TAB PO SCH (08:13)
[2018-02-05] MEDS: Carvedilol 6.25 MG TAB PO SCH ×2 (08:13→16:53)
[2018-02-05] MEDS: Lantus 1000 UNITS/10 ML VIAL SC SCH ×2 (08:13→20:52)
[2018-02-05] MEDS: Saccharomyces boulardii 250 MG CAP PO SCH (08:13)
[2018-02-05] MEDS: Enoxaparin Sodium 40 MG/0.4 ML SYRINGE SC SCH (08:13)
[2018-02-05] MEDS: HumaLOG 300 UNITS/3 ML VIAL SC SCH ×2 (08:14→16:54)
[2018-02-05] MEDS: Rosuvastatin 10 MG TAB PO SCH (20:52)
[2018-02-06] MEDS: Cipro 250 MG TAB PO SCH (05:52)
[2018-02-06 08:46] VITALS: TEMP 97.2
[2018-02-06] MEDS: Carvedilol 6.25 MG TAB PO SCH (09:03)
[2018-02-06] MEDS: FLUoxetine HCl 20 MG CAP PO SCH (09:03)
[2018-02-06] MEDS: Saccharomyces boulardii 250 MG CAP PO SCH (09:03)
[2018-02-06] MEDS: HumaLOG 300 UNITS/3 ML VIAL SC SCH (09:03)
[2018-02-06] MEDS: Gabapentin 300 MG CAP PO SCH (09:03)
[2018-02-06] MEDS: Lisinopril 10 MG TAB PO SCH (09:03)
[2018-02-06] MEDS: Lantus 1000 UNITS/10 ML VIAL SC SCH (09:05)
[2018-02-06] MEDS: Enoxaparin Sodium 40 MG/0.4 ML SYRINGE SC SCH (09:06)
[2018-02-06 09:07] VITALS: BP 172/85
--- NOTE | 2018-02-06 09:14 | DIS ---
FINAL DIAGNOSES: 1. Generalized weakness and deconditioning. A. Secondary to his low back surgery on 01/16/2018. B. Continued improvement. Ambulating with the use of a rolling walker and transferring independently as of 02/06/2018. 2. Hospitalized at [facility] from 01/16/2018 until 01/18/2018 for severe spondylosis of the lumbar spine with high grade stenosis for which he underwent a decompressive surgery. 3. Severe spondylosis of the lumbar spine with high grade spinal stenosis and neurogenic claudication at L1-L2, L3-L4 and L5-S1 level. A. Status post decompressive laminectomy, medial facetectomy, foraminotomy at L1-L2, L3-L4, and L5-S1 with closure of durotomy on the right L1 on 01/16/[address] Mariel Kwon. B. Catheter has since been removed and he is voiding without difficulty as of 02/01/2018. C. Whiting removed on 02/01/2018. Incision healing well with no redness as of 02/02/2018. 4. Postop urinary retention. A. Requiring placement of Carl catheter on 01/18/2018. B. History of postop urinary retention with coronary artery bypass surgery in 09/2017. C. Voiding without difficulty as of 02/06/2018. 5. Coronary artery disease. A. Status post myocardial infarction in 2009 and again in 2011. B. Status post stent x1, following the myocardial infarction in 2009 and second stent applied after the myocardial infarction in 2011. C. Coronary artery bypass x3 after an abnormal MPI. Heart cath showed triple- vessel disease, 09/26/2017. D. Echocardiogram on 09/29/2017 showed ejection fraction of 35%-40% with apex akinetic and atrial fibrillation, mild increased left ventricular size. 6. Diabetes type 2. A. Insulin-dependent. B. Controlled, improving. Hemoglobin A1c was 8.7. FBS 102 as of 01/26/2018. C. Complicated by peripheral neuropathy. 7. Hypercholesterolemia. 8. Chronic kidney disease, mild. A. Moderate chronic kidney disease with a GFR of 56. B. GFR 80 as of 01/30/2018. 9. Peripheral vascular disease. A. Status post stent placed in the lower extremities in 09/2015. 10. Episode of atrial fibrillation. History of following coronary artery bypass, 09/2017. 11. Anemia. A. Hemoglobin 8.4 as of 01/29/2018. B. Etiology probably secondary to recent back surgery. C. Hemoglobin up to 9.4 as of 01/30/2018. 12. Depression. A. Improved as of 02/06/2018. 13. Urinary tract infection. A. Presenting with low-grade fever and some mild lethargy on the evening of 05/2017. B. Urine culture that was drawn after initiation of antibiotics is growing Pseudomonas aeruginosa. Culture was from 01/28/2018. C. Complicated by bacteremia with Pseudomonas aeruginosa. D. Afebrile and asymptomatic as of 02/03/2018. 14. Bacteremia secondary to urinary tract infection. A. Blood cultures from 01/26/2018 growing Pseudomonas aeruginosa with organism sensitive to meropenem. B. Ceftriaxone switched to meropenem on 01/28/2018. C. Repeat blood cultures from 01/29/2018 have no growth x2. D. Has completed 7 days of IV meropenem and will be switched to oral antibiotics for 7 days as of 02/03/2018. 15. Diarrhea. A. Resolved as of 02/02/2018. B. No recurrence as of 02/03/2018. SUMMARY: The patient is a 67-year-old white male who has a history of diabetes type 2 insulin-dependent, hypertension, coronary artery disease for which he has undergone multiple stents and a coronary artery bypass in 09/2017. He also has severe lumbar spondylosis with multiple levels of high grade spinal stenosis. He was hospitalized at [facility] from 01/16/2018 until and underwent a decompressive laminectomy, medial facetectomy, foraminotomy at L1-2, L3-4 and L5-S1 with closure of a durotomy on the right at L1 by neurosurgeon, Dr. Kwon. Postop he had some trouble with urinary retention and required temporary Carl catheter. The patient was left extremely weak and not ambulatory, but was able to move his legs a little bit and had good sensation. Due to the weakness he was transferred to [facility] for extended care for purpose of strengthening exercise, gait training , and general conditioning on 01/18/2018. The patient while hospitalized physical therapy began working with him and he made excellent progress. He initially had difficulty tolerating even standing for short periods. Gradually this was advanced and during his hospital stay he made very excellent progress. By the time of his discharge he was walking up to 150 feet with a rolling walker and was transferring independently. His wound over the lumbar area healed well. He saw Dr. Kwon in follow up on 02/01/2018 and the shivam were removed and he thought that he was doing very well. His Carl catheter was removed after a few days that had been placed at [facility] for urinary retention. He was able to void, but the patient then developed a fever , some little mild alteration in mental status. Urine showed evidence of urinary tract infection. He was started on IV Rocephin. His white cell count showed a leukocytosis. Two blood cultures were drawn on 01/26/2018. His blood cultures grew Pseudomonas aeruginosa x2 with the organism sensitive to meropenem , but resistant to the ceftriaxone. His urine culture was not collected on , he was not able to void and Carl catheter was reinserted. A urinalysis collected showing evidence of the pyuria, but apparently a urine culture was not done. This was reordered and collected on 01/28/2018 and did grow Pseudomonas aeruginosa with a colony count of less than 5000. This though was collected after he had already been on antibiotics. The patient was switched to IV meropenem on 01/28/2018 for the bacteremia with Pseudomonas aeruginosa coming from the urinary tract infection with the same organism. He was treated with the meropenem for 7 days. His repeat blood cultures done on had no growth after the completion of the 7 days of meropenem he was started on Cipro 500 mg b.i.d., which the organism is sensitive to and will complete a 7-day course of this. His condition continued to improve. His diabetes showed good control. He did develop some diarrhea while hospitalized. The analysis of this was unrevealing, but he refused to take his metformin. This was stopped and all of the diarrhea resolved. His diabetes remained in good control on his Levemir and Humalog. The patient developed some depressive symptoms, but was started on Prozac, but refused to continue to take this but later restarted this.The depression, did to improve as his strength improved. His blood pressure remained under good control while hospitalized. His blood count on admission was 9 and his hemoglobin on followup on 01/30/2018 was 9.4. His creatinine on admission was 1.28 and on 01/30/2018 it was 0.94. On 2017 his condition improved such that it is felt like he could now be managed safely at home. He plans on continuing physical therapy as an outpatient at the [facility]. The patient will see his surgeon in follow up will be seen by myself in follow up in 2 weeks. DISPOSITION DIET: Consistent carbohydrate diet. No added salt. ACTIVITIES: Ambulate the use of a walker with wheels. PT, outpatient physical therapy at the [facility]. Glucometer checks daily. MEDICATIONS: Acetaminophen 325 mg 2 every 6 hours as needed, carvedilol 6.25 mg b.i.d., Cipro 500 mg b.i.d. x4 days, gabapentin 300 mg b.i.d., Levemir 15 units b.i.d., Humalog 4 units before breakfast and supper twice a day, lisinopril 10 mg daily, melatonin 3 mg at bedtime p.r.n., Crestor 20 mg at bedtime and fluoxetine 20 mg daily. FOLLOWUP: The patient will be seen in followup by myself in 2 weeks with a CBC , BMP, and hemoglobin A1c. CODE STATUS: Full code. MTDD
--- NOTE | 2018-02-06 09:16 | PRG ---
DATE OF SERVICE: 02/04/2018 SUBJECTIVE: The patient said he is feeling great this morning. He is not having any trouble urinati ng. He is having no diarrhea. His strength is improving. He is walking better. OBJECTIVE: The patient appears very comfortable, talkative, appears in no distress. His vital signs show a temperature 97, pulse 68, respirations 20, O2 sat 96%, blood pressure 168/80. Lungs are cyn r. Heart, regular rate. Extremities, no edema. Incision on the lumbar spine area, well healed. His FBS this morning was 135. ASSESSMENT: 1. Generalized weakness and deconditioning. A. Secondary to his low back surgery on 01/16/2018. B. Continued improvement as of 02/04/2018. 2. Hospitalized at [facility] from 01/16/2018 until 01/18/2018 for severe spondylosis of the lumbar spine with high grade stenosis for which he underwent a decompressive surgery. 3. Severe spondylosis of the lumbar spine with high grade spinal stenosis and neurogenic claudicatio n at L1-L2, L3-L4 and L5-S1 level. A. Status post decompressive laminectomy, medial facetectomy, foraminotomy at L1-L2, L3-L4, and L5-S 1 with closure of durotomy on the right L1 on 01/16/[address] Mariel Kwon. B. Catheter has since been removed and he is voiding without difficulty as of 02/01/2018. C. Chayo removed on 02/04/2018. Incision healing well with no redness as of 02/02/2018. 4. Postop urinary retention. A. Requiring placement of Carl catheter on 01/18/2018. B. History of postop urinary retention with coronary artery bypass surgery in 09/2017. C. Voiding without difficulty as of 02/04/2018. 5. Coronary artery disease. A. Status post myocardial infarction in 2009 and again in 2011. B. Status post stent x1, following the myocardial infarction in 2009 and second stent applied after the myocardial infarction in 2011. C. Coronary artery bypass x3 after an abnormal MPI. Heart cath showed triple-vessel disease, 2017. D. Echocardiogram on 09/29/2017 showed ejection fraction of 35%-40% with apex akinetic and atrial fi brillation, mild increased left ventricular size. 6. Diabetes type 2. A. Insulin-dependent. B. Controlled, improving. Hemoglobin A1c was 8.7. FBS 102 as of 01/26/2018. C. Complicated by peripheral neuropathy. 7. Hypercholesterolemia. 8. Chronic kidney disease, mild. A. Moderate chronic kidney disease with a GFR of 56. B. GFR 80 as of 01/30/2018. 9. Peripheral vascular disease. A. Status post stent placed in the lower extremities in 09/2015. 10. Episode of atrial fibrillation. History of following coronary artery bypass, 09/2017. 11. Anemia. A. Hemoglobin 8.4 as of 01/29/2018. B. Etiology probably secondary to recent back surgery. C. Hemoglobin up to 9.4 as of 01/30/2018. 12. Depression. A. Improved as of 02/04/2018. 13. Urinary tract infection. A. Presenting with low-grade fever and some mild lethargy on the evening of 01/26/2018. B. Urine culture that was drawn after initiation of antibiotics is growing Pseudomonas aeruginosa. Culture was from 01/28/2018. C. Complicated by bacteremia with Pseudomonas aeruginosa. D. Afebrile and asymptomatic as of 02/03/2018. 14. Bacteremia secondary to urinary tract infection. A. Blood cultures from 01/26/2018 growing Pseudomonas aeruginosa with organism sensitive to meropene m. B. Ceftriaxone switched to meropenem on 01/28/2018. C. Repeat blood cultures from 01/29/2018 have no growth x2. D. Has completed 7 days of IV meropenem and will be switched to oral antibiotics for 7 days as of . E. Remains asymptomatic and afebrile and on oral Cipro as of 02/04/2018. 15. Diarrhea. A. Resolved as of 02/02/2018. B. No recurrence as of 02/03/2018. PLAN: Continue present care. Continue PT and OT. The patient making preparations for probable disc harge on 02/06/2018.
== END 2018-02-06 10:45 | disposition home or self-care (01) | DRG 560 ==
LOC: MADMS 18:04
PROVIDERS: ADMIT Family Medicine; ATTEND Family Medicine
DX: Z47.89 Encounter for other orthopedic aftercare (principal); N39.0 Urinary tract infection, site not specified; E11.8 Type 2 diabetes mellitus with unspecified complications; Z79.4 Long term (current) use of insulin; I10 Essential (primary) hypertension; I25.10 Atherosclerotic heart disease of native coronary artery without angina pectoris; Z95.1 Presence of aortocoronary bypass graft; Z95.5 Presence of coronary angioplasty implant and graft; I25.2 Old myocardial infarction; I70.209 Unspecified atherosclerosis of native arteries of extremities, unspecified extremity; E78.00 Pure hypercholesterolemia, unspecified; Z96.641 Presence of right artificial hip joint; N40.1 Benign prostatic hyperplasia with lower urinary tract symptoms; R33.8 Other retention of urine; E11.42 Type 2 diabetes mellitus with diabetic polyneuropathy; D64.9 Anemia, unspecified; F32.9 Major depressive disorder, single episode, unspecified; B96.4 Proteus (mirabilis) (morganii) as the cause of diseases classified elsewhere; M47.816 Spondylosis without myelopathy or radiculopathy, lumbar region; E11.22 Type 2 diabetes mellitus with diabetic chronic kidney disease; I12.9 Hypertensive chronic kidney disease with stage 1 through stage 4 chronic kidney disease, or unspecified chronic kidney disease; N18.1 Chronic kidney disease, stage 1
CPT/HCPCS: 36415; 36416; 71045; 80048; 80053; 80061; 81001; 81003; 81015; 82274; 83036; 83630; 84443; 85025; 87040; 87045; 87046; 87077; 87086; 87149; 87186; 87324; 87449; 87899; A4216; G8978-GP-CM; G8979-GP-CJ; G8987-GO-CM; G8988-GO-CI; J0696; J1650; J1815; J2185; J7050; Q0162

== ENCOUNTER 2019-12-27 12:50 | Emergency (ER) | payer MEDICARE ==
[2019-12-27] MEDS ORDERED: Ketorolac Tromethamine 30 MG/ML VIAL ONE (13:36)
[2019-12-27 13:40] LABS: Bilirubin Negative (Negative); Blood, Urine Moderate (Negative); Glucose, Urine (Dipstick) 500 mg/dL (Negative); Ketone, Urine Trace mg/dL (Negative); Leukocyte Negative (Negative); Nitrite Negative (Negative); Protein, Urine (Dipstick) > or equal to 300 mg/dL (Neg-Trace); Specific Gravity, Urine 1.025 (1.005-1.030); Urobilinogen 0.2 mg/dL (Less than 2); pH, Urine 6.5 (5.0-9.0)
[2019-12-27 13:41] LABS: Clarity Hazy (Clear)
[2019-12-27 13:47] LABS: Amphetamine Not Detected (NotDetected); Barbiturates Screen Not Detected (NotDetected); Benzodiazepine Screen Not Detected (NotDetected); Cocaine Metabolite Screen Not Detected (NotDetected); Medtox Control Line Valid? VALID (VALID); Methadone Not Detected (NotDetected); Methamphetamine Not Detected (NotDetected); Opiate Screen Not Detected (NotDetected); Oxycodone Screen Not Detected (NotDetected); Phencyclidine (PCP) Not Detected (NotDetected); THC/Cannabinoid Screen Not Detected (NotDetected); Tricyclic Screen Not Detected (NotDetected)
--- NOTE | 2019-12-27 13:50 | CT ---
CT BRAIN WITHOUT CONTRAST: HISTORY:Fall yesterday. No loss of consciousness COMPARISON:None FINDINGS: There are foci of decreased attenuation in the periventricular white matter, consistent with chronic small vessel ischemic disease. There is gliosis in the right frontal lobe. No evidence of acute infarct, hemorrhage, midline shift or abnormal extra-axial fluid collections is seen. The ventricular size is appropriate and the basilar cisterns are patent. The bony calvarium is intact. The visualized paranasal sinuses and mastoid air cells are well aerated. IMPRESSION: No CT evidence of acute intracranial process.
[2019-12-27 13:52] LABS: Acetaminophen Less than 6.0 mcg/mL (10.0-30.0); Alcohol Less than 10 mg/dL (Less than 10); Salicylate Less than 8.0 mg/dL (15.0-30.0)
--- NOTE | 2019-12-27 13:53 | CT ---
CT CERVICAL SPINE WITH CORONAL AND SAGITTAL REFORMATIONS AND NO IV CONTRAST: HISTORY: Fall yesterday, neck pain FINDINGS: Multilevel degenerative changes are present. No fracture, subluxation or facet malalignment is identified. No prevertebral soft tissue swelling is apparent. The visualized lung apices are unremarkable. IMPRESSION: No CT evidence for fracture or traumatic subluxation.
--- NOTE | 2019-12-27 13:53 | RAD ---
EXAM: 4 views of the left elbow HISTORY: Elbow pain COMPARISON: None FINDINGS: No elbow effusion is seen. There is no evidence of acute fracture or dislocation. No signi ficant degenerative changes are seen. No soft tissue swelling is present. Vascular calcifications are seen. IMPRESSION: No evidence of acute osseous abnormality.
[2019-12-27 13:54] LABS: ALT (SGPT) 15 U/L (8-55); AST (SGOT) 29 U/L (5-34); Albumin 3.4 g/dL (3.4-4.8); Alkaline Phosphatase 84 U/L (40-110); Anion Gap 16 mmol/L (10-20); BUN (Urea Nitrogen) 23 mg/dL (8.4-25.7); Bilirubin, Total 0.8 mg/dL (0.2-1.2); Calc. Creatinine Clearance 0 mL/min (70-130); Calcium 8.3 mg/dL (7.8-10.44); Carbon Dioxide 24 mmol/L (23-31); Chloride 100 mmol/L (98-107); Estimated GFR-MDRD 59; Globulin 3.8 g/dL (2.4-3.5); Glucose 233 mg/dL (80-115); Magnesium 1.8 mg/dL (1.6-2.6); Potassium 4.6 mmol/L (3.5-5.1); Protein, Total 7.2 g/dL (5.8-8.1); Sodium 135 mmol/L (136-145)
--- NOTE | 2019-12-27 13:55 | CT ---
EXAM: CT pelvis without contrast HISTORY: Pelvic and hip pain after fall. Unable to bear weight. COMPARISON: None TECHNIQUE: Multiple contiguous axial images were obtained and a CT of the pelvis without contrast. Sa gittal and coronal reformats were performed. FINDINGS: No pelvic fractures are seen. There is an impacted fracture of the left femoral neck. The p atient has a right hip prosthesis without perihardware lucency or fracture.. Moderate degenerative changes seen in the left hip. Scattered diverticula are seen in the colon. Atherosclerotic calcific lesions are seen in the aorta.. The soft tissues surrounding the pelvis are unremarkable. Degenerative and postsurgical changes are seen in the spine. IMPRESSION: Left femoral neck fracture
[2019-12-27 13:56] LABS: Band 6 % (5-11); Hemoglobin 12.3 g/dL (14.0-18.0); Lymphocytes 5 % (21-51); MDiff Complete? YES; Mean Corpuscular HGB CONC 32.2 g/dL (32.0-36.0); Mean Corpuscular Hemoglobin 28.2 pg (27.0-31.0); Mean Corpuscular Volume 87.7 fL (78.0-98.0); Mean Platelet Volume 8.4 fL (7.4-10.4); Monocytes 4 % (0-10); Neutrophil 85 % (42-75); Platelet Count 197 thou/uL (130-400); RBC Distribution Width 12.4 % (11.5-14.5); Red Blood Cell (RBC) Count 4.34 mill/uL (4.70-6.10); White Blood Cell (WBC) Count 11.4 thou/uL (4.8-10.8)
[2019-12-27 14:05] LABS: Bilirubin Negative (Negative); Blood, Urine Moderate (Negative); Clarity Clear (Clear); Glucose, Urine (Dipstick) 500 mg/dL (Negative); Ketone, Urine Negative (Negative); Leukocyte Negative (Negative); Nitrite Negative (Negative); Protein, Urine (Dipstick) > or equal to 300 mg/dL (Neg-Trace); Urobilinogen 0.2 mg/dL (Less than 2)
[2019-12-27 14:07] LABS: Bacteria/HPF Rare-Few HPF (None Seen); Squamous Epithelial 0-3 HPF (0-3); WBC/HPF 0-3 HPF (0-3)
[2019-12-27 14:13] LABS: CKMB 3.4 ng/mL (0-6.6)
[2019-12-27] MEDS ORDERED: Morphine 4 MG/ML VIAL ONE (14:50)
== END 2019-12-27 15:01 | disposition home or self-care (01) ==
LOC: MADERS 12:50
DX: S72.002A Fracture of unspecified part of neck of left femur, initial encounter for closed fracture (principal); I25.10 Atherosclerotic heart disease of native coronary artery without angina pectoris; I25.2 Old myocardial infarction; I10 Essential (primary) hypertension; E11.9 Type 2 diabetes mellitus without complications; Z95.1 Presence of aortocoronary bypass graft; W18.30XA Fall on same level, unspecified, initial encounter
CPT/HCPCS: 36416; 70450; 72125; 72192; 80053; 80306; 80307; 81003; 81015; 82553; 83605; 83735; 84484; 85025; 93005; 96374; J1885; J2270

== ENCOUNTER 2020-01-07 15:27 | Inpatient (IN) | payer MEDICARE ==
[2020-01-07] MEDS ORDERED: Dextrose 50% Abboject 50 ML SYRINGE IVP PRN (17:57)
[2020-01-07] MEDS ORDERED: Dextrose 5% in Water 1,000 ML IV PRN (17:57)
[2020-01-07] MEDS: Acetaminophen/Codeine 30-300mg Tablet PO PRN (18:04)
[2020-01-07] MEDS: Apixaban 5 MG TAB PO SCH (20:59)
[2020-01-07] MEDS: Ciprofloxacin 500 MG TAB PO SCH (20:59)
[2020-01-07] MEDS: Carvedilol 6.25 MG TAB PO SCH (20:59)
[2020-01-07] MEDS: Lantus 1000 UNITS/10 ML VIAL SC SCH (21:00)
[2020-01-07] MEDS: Rosuvastatin 10 MG TAB PO SCH (21:00)
[2020-01-07] MEDS: Gabapentin 100 MG CAP PO SCH (21:00)
[2020-01-07] MEDS: Senokot S 8.6-50 MG TAB PO SCH (21:00)
[2020-01-08] MEDS: Acetaminophen/Codeine 30-300mg Tablet PO PRN ×3 (02:17→23:26)
[2020-01-08] MEDS: Ciprofloxacin 500 MG TAB PO SCH ×2 (05:35→19:58)
[2020-01-08 06:08] LABS: ALT (SGPT) 15 U/L (8-55); AST (SGOT) 22 U/L (5-34); Albumin 2.6 g/dL (3.4-4.8); Alkaline Phosphatase 91 U/L (40-110); Anion Gap 12 mmol/L (10-20); BUN (Urea Nitrogen) 27 mg/dL (8.4-25.7); Bilirubin, Total 0.3 mg/dL (0.2-1.2); Calc. Creatinine Clearance 83 mL/min (70-130); Calcium 8.2 mg/dL (7.8-10.44); Carbon Dioxide 25 mmol/L (23-31); Cardiac Risk 4.1 (Less than 4.5); Chloride 101 mmol/L (98-107); Cholesterol 103 mg/dl (< 200 Desired); Estimated GFR-MDRD 62; Glucose 160 mg/dL (80-115); HDL Cholesterol 25 mg/dL (>60 Neg Risk); LDL Cholesterol, Calculated 61 mg/dL; Potassium 4.3 mmol/L (3.5-5.1); Protein, Total 6.6 g/dL (5.8-8.1); Sodium 134 mmol/L (136-145); Triglycerides 87 mg/dL (Less than 150)
[2020-01-08 06:28] LABS: #Basophils 0.1 thou/uL (0.0-0.2); #Eosinphils 0.6 thou/uL (0.0-0.7); #Lymphocytes 2.5 thou/uL (1.20-3.40); #Neutrophils 6.2 thou/uL (1.40-6.50); %Basophils 1.1 % (0.0-1.0); %Eosinophils 5.9 % (0.0-10.0); %Lymphocytes 24.1 % (21.0-51.0); %Monocytes 9.3 % (0.0-10.0); %Neutrophils 59.5 % (42.0-75.0); Hemoglobin 9.5 g/dL (14.0-18.0); Mean Corpuscular HGB CONC 31.4 g/dL (32.0-36.0); Mean Corpuscular Hemoglobin 27.3 pg (27.0-31.0); Mean Corpuscular Volume 86.9 fL (78.0-98.0); Mean Platelet Volume 5.9 fL (7.4-10.4); Platelet Count 416 thou/uL (130-400); RBC Distribution Width 12.4 % (11.5-14.5); Red Blood Cell (RBC) Count 3.47 mill/uL (4.70-6.10); White Blood Cell (WBC) Count 10.5 thou/uL (4.8-10.8)
--- NOTE | 2020-01-08 06:36 | HP ---
CHIEF COMPLAINT: Weakness. HISTORY OF PRESENT ILLNESS: The patient is a 69-year-old white male, who has a history of ischemic cardiomyopathy for which he has an AICD. He also has hypertension, coronary artery disease, and diabetes type 2, insulin requiring. The patient has peripheral vascular disease and lumbar spondylosis. The patient lives at home where he is independent with his ADLs and ambulates with the use of a cane. The patient had a fall on 12/27/19 when he said that he tripped and had immediate pain in his left hip. He was hospitalized at [facility] for a subcapital fracture of the left hip. He underwent a left total hip arthroplasty on 12/28/2019 by orthopedic surgeon, Dr. Trevor Villasenor. His postop course was complicated by urinary tract infection with urinary retention. His echocardiogram done on 12/29 showed a severely depressed left ventricular function at 20% to 25%. His echocardiogram showed an ejection fraction of 30% to 35%. There was also a mass noted at the right ICD atrial lead. The patient underwent a transesophageal echo on 12/30, which showed that the patient had a thrombus at the tip of the insertion of the right atrial ICD lead. He also had severe tricuspid regurgitation, and also was found to have akinesis of the apex of the left ventricle. The patient required placement of a Carl catheter for the urinary retention and was found to have a urinary tract infection. He was placed on Cipro, which will need to continue until 01/13 and then try removal of the catheter. He had some trouble with some confusion postop, but this markedly improved. The patient was placed on full dose of Eliquis for the atrium clot at the ICD insertion site. His automatic machine attendant is Dr. Mendez. The patient's condition improved where he had walked up to 20 feet and his diabetes was managed with Lantus and moderate scale short-acting insulin before meals. His condition improved and was discharged to [facility] for continued physical therapy and occupational therapy, care of his diabetes and care of a stage II decubitus over the right buttock. The patient was seen in his room after his arrival. He said he was feeling a lot better and thought that his hip was doing good. He said that he had tripped at home on some wires from an extension cord. He thinks he is doing well. His pain seemed to be well controlled. PAST MEDICAL HISTORY: Hospitalized at [facility] from 12/26 until for subcapital fracture of the left hip requiring left total hip arthroplasty. While there, he was found to have a right atrial lead thrombus, for which he was placed on long-term anticoagulation with Eliquis. The patient has a history of coronary artery disease, for which he has had a stent placed in 2009, coronary artery bypass x3 on 09/26/2017. He has had ischemic cardiomyopathy with an ejection fraction of around 30% to 35% with severe akinesis at the left ventricular apex. He required placement of an AVID dual chamber ICD for chronic systolic heart failure on 03/09/2019. He has hypertension; hypercholesterolemia; diabetes type 2, insulin requiring, has been poor control due to very poor compliance; peripheral vascular disease, for which he has undergone stent placements in the arteries of the lower extremity in 2015; has chronic kidney disease. The patient had a CT scan of his brain when he was initially evaluated on emergency room presentation on [address] evidence of acute intracranial process. Pelvis CT showed the left femoral neck fracture. There was no pelvic fracture. This was also done on 12/27/19. The patient has a history of a mass on the left kidney that was not seen on ultrasound done on 07/19/2017. He did have a cyst of midportion of the left kidney. The patient has severe arthritis of the right hip, for which he has had a right total hip replacement.Severe spondylosis with spinal stenosis of lumbar spine. S/P decompressive laminectomy at L1-2, L3-4 and L5-S1 Dr Kwon. PRESENT MEDICINES: 1. Rosuvastatin 20 mg daily. 2. Lisinopril 10 mg daily. 3. Carvedilol 6.25 mg b.i.d. 4. Levemir 15 units b.i.d. 5. Tamsulosin 0.4 mg p.o. daily. 6. Senokot-S two b.i.d. 7. Cipro 500 mg b.i.d. that is ordered to continue until 01/14/2020. 8. MiraLAX 17 g in 8 ounces water daily. 9. Gabapentin 100 mg t.i.d. 10. Avodart 0.5 mg daily. 11. Cyclobenzaprine 5 mg t.i.d. p.r.n. 12. Aspirin 81 mg daily. 13. Eliquis 5 mg b.i.d. 14. Tylenol No. 3 one or two every 4 hours as needed for pain. 15. NovoLog subcu a.c. by moderate sliding scale. ALLERGIES: NO KNOWN ALLERGIES. REVIEW OF SYSTEMS: GENERAL: The patient said he thinks he is doing better. He is feeling better. He is not having any undue pain. HEAD AND NECK: No complaints. PULMONARY: No shortness of breath. CARDIOVASCULAR: No chest pain. GASTROINTESTINAL: The patient had a little trouble with some constipation, has been controlled with the laxatives. The patient is having no abdominal pain. He said his appetite is good. GENITOURINARY: The patient had urinary tract infection and urinary retention. He has an indwelling Carl catheter. He is due to have a trial of removal after completion of his antibiotics on 01/14/2020. NEUROPSYCHIATRIC: The patient denies any headache. The patient thinks he is doing good. ADLs: Prior to his hospitalization, he was able to dress himself, bathe himself and was driving. He was walking with the use of a cane and able to feed himself. DERMATOLOGIC: The patient has a small stage II decubitus over the right buttock. HABITS: Tobacco, none. Alcohol, none. SOCIAL HISTORY: The patient is , lives with his . CODE STATUS: Full code. PHYSICAL EXAMINATION: GENERAL: Shows a 69-year-old white male, who is standing, fixing to sit on the bedside commode. He is alert, talkative, and recognizes me, and does not appear in any acute distress. VITAL SIGNS: His height is 73 inches. His temp is 99, pulse 70, respirations were 28, O2 saturation 96% on room air, blood pressure 127/76. His weight is 217. HEENT: Head, normocephalic and atraumatic. Eyes, pupils are equal, round, and reactive. Ears, TMs are clear. Nose is normal. Mouth and throat normal. NECK: Carotids are equal and strong. No bruits. Thyroid not enlarged. The patient has an ICD in the left upper anterior chest, incision over that area is well healed. LUNGS: Clear. HEART: Regular rate. No murmurs. ABDOMEN: Soft, nontender. EXTREMITIES: There is no edema over the left hip. There is a vertical incision that is healing well. There is some superficial irritation to the skin from the taping. SKIN: The patient has a 1.5 cm stage II decubitus over the right buttock at the gluteal crease. NEUROLOGIC: The patient is alert, oriented to situation, place, and self. The patient recognizes me. The patient has generalized weakness and more so in the left leg from the one that had the hip fracture. IMPRESSION: 1. Generalized weakness and gait abnormality. a. Secondary to a hip fracture and repair on 12/27. 2. Subcapital fracture of the left hip. a. Secondary to a mechanical fall from tripping on 12/27/2019. b. Status post left total hip arthroplasty by Dr. Trevor Villasenor, orthopedic surgeon, on 12/27. c. Improving. 3. Ischemic cardiomyopathy. a. Echocardiogram showed ejection fraction of 30% to 35% with akinetic apex of the left ventricle on 12/27/19 with a mass at the atrial lead of the ICD, transesophageal echo showed to be a thrombus. 4. Coronary artery disease. a. Status post stent x1 in 2009 and x1 in 2011. b. Status post coronary artery bypass x3, 09/26/17. 5. Hypertension. 6. Diabetes type 2, insulin requiring. a. History of poor control due to very poor compliance. 7. Hypercholesterolemia. 8. Diabetic peripheral neuropathy. 9. Peripheral vascular disease. a. Status post stent placements in the arteries of the lower extremity, September of 2015. 10. Stage II decubitus of the right buttock near the gluteal crease. 11. Thrombus at the insertion of the right atrial ICD lead identified on transesophageal echocardiogram on 12/31/19. a. Anticoagulation indefinitely with Eliquis. 12. Urinary tract infection. a. On antibiotics with Cipro until 01/14/2020. 13. Urinary retention. a. Required indwelling Carl catheter. b. Plan to remove catheter upon the completion of oral Cipro on 01/13. PLAN: The patient has been admitted to [facility] where he will receive PT and OT. Also, the wound on the right buttock at the gluteal crease will be cleaned and dressed with a sacral Mepilex dressing. We will encourage the patient to be up more to offload this area. We will continue his medication as listed above. The patient will need to continue his coagulant with Eliquis indefinitely. We will continue his insulin and a moderate sliding scale. Once he does go home, we will arrange for home health to apple picking supervisor on his care to continue PT and OT and also to continue education regarding his diet and insulin therapy. See orders. Job ID: [id number] MTDD
[2020-01-08] MEDS: Aspirin 81 mg Enteric Coated Tablet PO SCH (07:58)
[2020-01-08] MEDS: Lisinopril 10 MG TAB PO SCH (07:58)
[2020-01-08] MEDS: Polyethylene Glycol 3350 17 GM Packet PO SCH (07:58)
[2020-01-08] MEDS: Tamsulosin HCl 0.4 MG CAP PO SCH (07:58)
[2020-01-08] MEDS: Apixaban 5 MG TAB PO SCH ×2 (07:58→19:54)
[2020-01-08] MEDS: Carvedilol 6.25 MG TAB PO SCH ×2 (07:58→19:53)
[2020-01-08] MEDS: Gabapentin 100 MG CAP PO SCH ×3 (07:58→19:54)
[2020-01-08] MEDS: Senokot S 8.6-50 MG TAB PO SCH ×2 (07:58→19:53)
[2020-01-08] MEDS: Dutasteride 0.5 MG CAP PO SCH (08:00)
[2020-01-08] MEDS: Insulin Regular 300 UNITS/3 ML VIAL SC PRN ×3 (08:12→16:56)
[2020-01-08] MEDS: Lantus 1000 UNITS/10 ML VIAL SC SCH ×2 (08:12→20:48)
[2020-01-08 11:37] LABS: Hemoglobin A1c 7.5 % (4.0-6.0)
--- NOTE | 2020-01-08 12:01 | PRG ---
DATE OF SERVICE: 01/08/2020 SUBJECTIVE: The patient said he had a good night. He has already been up and worked with Physical Therapy. He was able to transfer easier and walk farther. He is now sitting up in a wheelchair, eating his breakfast. He had no complaint. OBJECTIVE: GENERAL: The patient is sitting up, eating. He is alert, talkative , recognizes me. He says he is having no pains. VITAL SIGNS: Show temperature 97.4, his pulse is 70, respirations 18, O2 saturation 96%, and blood pressure 118/70. FBS 165. LUNGS: Clear. HEART: Regular rate. LOWER EXTREMITIES: No edema. LABORATORY DATA: His lab shows H and H of 9.5 and 30.1, white cell count 10,500 with 59% segs, 24% lymphocytes and a platelet count of 416,000. Sodium 134, potassium 4.3, BUN 27, creatinine 1.17, GFR 62, FBS 160. TSH 1.2. Cholesterol 103, triglycerides 87, LDL 61, HDL 25. Hemoglobin A1c pending. ASSESSMENT: 1. Generalized weakness and gait abnormality: a. Following a fall with subcapital fracture of the left hip and repair on 12/27. b. Doing very well. Walking farther and transferring easier as of 01/07. 2. Subcapital fracture of the left hip. a. Secondary to a mechanical fall from tripping on 12/27/2019. b. Status post left total hip arthroplasty on 12/27. c. Improved as of 01/07. 3. Ischemic cardiomyopathy. a. Echocardiogram shows ejection fraction of 30% to 35% with akinetic apex of the left ventricle on 12/27/2019 with thrombus on the atrial lead of the implantable cardioverter-defibrillator. 4. Coronary artery disease. a. Status post stent in 2009 and a stent in 2011. b. Status post coronary artery bypass x3 on 09/26/2017. c. Presently asymptomatic. 5. Hypertension. 6. Diabetes type 2, insulin requiring. a. History of poor control due to poor compliance. b. Presently controlled. 7. Hypercholesterolemia. 8. Diabetic peripheral neuropathy. 9. Peripheral vascular disease. a. Status post stents in the arteries of lower extremity, September 2015. 10. Stage II decubitus the right buttock, gradually improving. 11. Thrombus at the insertion of the right implantable cardioverter- defibrillator atrial lead. a. Confirmed on transesophageal echocardiogram on 12/30. b. On anticoagulation with Eliquis. 12. Urinary tract infection. a. Due to complete antibiotics on 01/13. 13. Urinary retention. a. Requiring Carl catheter. b. Plan to trial removal on 01/13. PLAN: Continue present care. Continue PT and OT. Job ID: [id number] MTDD
[2020-01-08] MEDS: Rosuvastatin 10 MG TAB PO SCH (19:54)
[2020-01-09] MEDS: Ciprofloxacin 500 MG TAB PO SCH ×2 (05:20→20:07)
[2020-01-09] MEDS: Aspirin 81 mg Enteric Coated Tablet PO SCH (08:41)
[2020-01-09] MEDS: Tamsulosin HCl 0.4 MG CAP PO SCH (08:41)
[2020-01-09] MEDS: Carvedilol 6.25 MG TAB PO SCH ×2 (08:41→20:08)
[2020-01-09] MEDS: Polyethylene Glycol 3350 17 GM Packet PO SCH (08:41)
[2020-01-09] MEDS: Apixaban 5 MG TAB PO SCH ×2 (08:41→20:08)
[2020-01-09] MEDS: Lantus 1000 UNITS/10 ML VIAL SC SCH ×2 (08:41→20:09)
[2020-01-09] MEDS: Senokot S 8.6-50 MG TAB PO SCH ×2 (08:42→20:06)
[2020-01-09] MEDS: Dutasteride 0.5 MG CAP PO SCH (08:42)
[2020-01-09] MEDS: Gabapentin 100 MG CAP PO SCH ×3 (08:42→20:09)
[2020-01-09] MEDS: Lisinopril 10 MG TAB PO SCH (08:42)
--- NOTE | 2020-01-09 12:27 | PRG ---
DATE OF SERVICE: 01/09/2020 SUBJECTIVE: The patient says he is feeling good. He had a good night. He slept well. He has already been to physical therapy. He said he is getting up and down better. He is walking up to 65 feet with his rolling walker and caregiver assistance. OBJECTIVE: GENERAL: The patient is alert. He is sitting up in a wheelchair, eating his breakfast. VITAL SIGNS: His temperature is 97.3, pulse 71, respirations are 20, O2 saturation 98% on room air, blood pressure 121/69. His weight is 223. LUNGS: Clear. HEART: Regular rate. SKIN: Incision healing well. LABORATORY DATA: His hemoglobin A1c was 7.5. His glucose this morning was 174 , at bedtime 230 and before supper 255. ASSESSMENT: 1. Generalized weakness and gait abnormality. a. Following a fall with subcapital fracture of the left hip and repair on 12/28/19. b. Doing well. Walking up to 65 feet with a walker and caregiver assist. Transferring easier as of 01/08. 2. Subcapital fracture of the left hip. a. Secondary to mechanical fall from tripping on 12/27/19. b. Status post left total hip arthroplasty on 12/27 by Trevor Villasenor, orthopedic surgeon. c. Improved as of 01/08. 3. Ischemic cardiomyopathy. a. Echocardiogram showed ejection fraction of 30% to 35% with an akinetic apex of the left ventricle on 12/27/19. Also showed a mass on the insertion of the atrial lead of the ICD that was confirmed as a thrombus with transesophageal echocardiogram. 4. Coronary artery disease. a. Status post stent in 2009 and 2011. b. Status post coronary artery bypass x3 on 09/26/17. c. Presently asymptomatic. 5. Hypertension. 6. Diabetes type 2, insulin requiring. a. History of poor compliance. b. Presently controlled with hemoglobin A1c of 7.5. 7. Hypercholesterolemia. 8. Diabetic peripheral neuropathy. 9. Peripheral vascular disease. a. Status post stents in the arteries of the lower extremities, September 2015. 10. Stage II decubitus to the right buttock, gradually improving. 11. Thrombus of the insertion of the right atrial ICD lead. a. Confirmed with transesophageal echocardiogram on 12/31/19. b. On anticoagulation with Eliquis. 12. Urinary tract infection. a. Due to complete antibiotics on 01/13. 13. Urinary retention requiring Carl catheter. a. Plan of trial removal on 01/13. PLAN: Continue present care. Continue PT, OT. The patient tentatively scheduled to see his orthopedic surgeon on Tuesday, 01/10. Transportation issues are being worked out. We will try discontinuing the sliding scale and see how his blood sugar runs. I do not think the patient would be compliant with taking basal insulin and then mealtime insulin at home. Job ID: [id number] MTDD
[2020-01-09] MEDS: Acetaminophen/Codeine 30-300mg Tablet PO PRN ×2 (15:11→21:42)
[2020-01-09] MEDS: Rosuvastatin 10 MG TAB PO SCH (20:08)
[2020-01-10] MEDS: Ciprofloxacin 500 MG TAB PO SCH ×2 (05:56→20:43)
[2020-01-10] MEDS: Aspirin 81 mg Enteric Coated Tablet PO SCH (08:30)
[2020-01-10] MEDS: Gabapentin 100 MG CAP PO SCH ×3 (08:31→20:42)
[2020-01-10] MEDS: Lisinopril 10 MG TAB PO SCH (08:31)
[2020-01-10] MEDS: Apixaban 5 MG TAB PO SCH ×2 (08:31→20:44)
[2020-01-10] MEDS: Carvedilol 6.25 MG TAB PO SCH ×2 (08:31→20:43)
[2020-01-10] MEDS: Dutasteride 0.5 MG CAP PO SCH (08:32)
[2020-01-10] MEDS: Senokot S 8.6-50 MG TAB PO SCH ×2 (08:32→20:42)
[2020-01-10] MEDS: Tamsulosin HCl 0.4 MG CAP PO SCH (08:32)
[2020-01-10] MEDS: Lantus 1000 UNITS/10 ML VIAL SC SCH ×2 (08:32→20:52)
[2020-01-10] MEDS: metFORMIN 500 MG TAB PO SCH ×3 (08:40→16:45)
[2020-01-10] MEDS: Polyethylene Glycol 3350 17 GM Packet PO SCH (08:59)
--- NOTE | 2020-01-10 09:51 | PRG ---
DATE OF SERVICE: 01/10/2020 SUBJECTIVE: The patient said he slept very good last night. The patient said he feels good this morning. The patient is scheduled to see Dr. Villasenor, his orthopedic surgeon this afternoon here at the hospital in the outpatient department. OBJECTIVE: GENERAL: The patient lying in bed. He is alert, talkative, appears comfortable, and in no distress. VITAL SIGNS: His temperature 99, pulse 63, respirations 16, O2 saturation 96% on room air, blood pressure 112/72. LUNGS: Clear. HEART: Regular rate. EXTREMITIES: No edema. LABORATORY DATA: His FBS this morning was 174. Last evening, his glucose was 276 and before supper, was 219. ASSESSMENT: 1. Generalized weakness and gait abnormality. a. Following a fall with a subcapital fracture of the left hip and repair on 12/28/2019. b. Doing well. Walking up to 65 feet with a walker and caregiver assist. Transferring easier as of 01/09. 2. Subcapital fracture of the left hip. a. Secondary to mechanical fall from tripping on 12/27/2019. b. Status post left total hip arthroplasty on 12/[address] Trevor Villasenor, orthopedic surgeon. c. Continued improvement as of 01/09. 3. Ischemic cardiomyopathy. a. Echocardiogram showed ejection fraction of 30% to 35% with an akinetic apex of the left ventricle on 12/27/2019. Also, showed a mass on the insertion site of the atrial lead of the ICD that was confirmed as a thrombus with transesophageal echocardiogram. 4. Coronary artery disease. a. Status post stent placement in 2009 and 2011. b. Status post coronary artery bypass x3 on 09/26/2017. c. Presently asymptomatic. 5. Hypertension. 6. Diabetes type 2, insulin-requiring. a. History of poor compliance. b. Hemoglobin A1c 7.5. 7. Hypercholesterolemia. 8. Diabetic peripheral neuropathy. 9. Peripheral vascular disease. a. Status post stents in the arteries of the lower extremity, September 2015. 10. Stage II decubitus to the right buttock, gradually healing. 11. Thrombus of the insertion of the right atrial implantable cardioverter defibrillator lead. a. Confirmed with transesophageal echocardiogram on 12/31/2019. b. On anticoagulant with Eliquis. 12. Urinary tract infection. a. Due to complete antibiotic on 01/13. 13. Urinary retention, requiring Carl catheter. a. Plan is to remove this on 01/13. PLAN: Continue PT and OT. Continue antibiotics. The patient due to see his orthopedic surgeon this afternoon. We will add metformin 1000 mg b.i.d. to his present drug regimen. Job ID: [id number] MTDD
--- NOTE | 2020-01-10 16:15 | RAD ---
Radiograph left hip 2 views: 01/10/2020 HISTORY: 69-year-old male with left hip pain. Recent surgery for impacted subcapital fracture of left proximal femur. COMPARISON: 12/29/2019 FINDINGS: Again noted is the metallic acetabular cup without screws, articulating with the metallic femoral hea d prosthesis with stem reaching proximal femoral diaphysis. No evidence of loosening or dislocation. No interval change. IMPRESSION: 1. Total left hip replacement arthroplasty. 2. No interval change.
[2020-01-10] MEDS: Rosuvastatin 10 MG TAB PO SCH (20:42)
[2020-01-11] MEDS: Ciprofloxacin 500 MG TAB PO SCH ×2 (06:00→20:43)
[2020-01-11] MEDS: Dutasteride 0.5 MG CAP PO SCH (08:28)
[2020-01-11] MEDS: Apixaban 5 MG TAB PO SCH ×2 (08:28→20:43)
[2020-01-11] MEDS: Carvedilol 6.25 MG TAB PO SCH ×2 (08:28→20:42)
[2020-01-11] MEDS: Aspirin 81 mg Enteric Coated Tablet PO SCH (08:28)
[2020-01-11] MEDS: Tamsulosin HCl 0.4 MG CAP PO SCH (08:28)
[2020-01-11] MEDS: Senokot S 8.6-50 MG TAB PO SCH ×2 (08:29→20:56)
[2020-01-11] MEDS: Gabapentin 100 MG CAP PO SCH ×5 (08:29→20:56)
[2020-01-11] MEDS: Lisinopril 10 MG TAB PO SCH (08:29)
[2020-01-11] MEDS: Lantus 1000 UNITS/10 ML VIAL SC SCH ×2 (08:30→20:43)
[2020-01-11] MEDS: metFORMIN 500 MG TAB PO SCH ×2 (08:30→16:24)
[2020-01-11] MEDS: Polyethylene Glycol 3350 17 GM Packet PO SCH (08:33)
--- NOTE | 2020-01-11 12:50 | PRG ---
DATE OF SERVICE: 01/11/2020 SUBJECTIVE: The patient said he is doing very well. He slept good last night. He saw Dr. Villasenor, his orthopedic surgeon, yesterday afternoon here in the outpatient clinic at [facility]. Dr. Villasenor was happy with his progress and will see him back in probably 6 weeks. He has already been to therapy this morning. He is a little tired from the therapy and just resting at present. OBJECTIVE: GENERAL: The patient is alert, appears very comfortable. VITAL SIGNS: His temperature is 97.7, pulse 67, respirations 18, O2 saturation 97% on room air, blood pressure 145/79. LUNGS: Clear. HEART: Regular rate. EXTREMITIES: Show no edema. The incision along the left hip is healing well. LABORATORY DATA: His FBS this morning was 153, before bedtime 203, and before supper 207. IMAGING: The patient underwent a repeat x-ray of the left hip from yesterday that Dr. Villasenor reviewed and the left total hip arthroplasty was in good position and showed no evidence of loosening or dislocation. There had been no interval change. ASSESSMENT: 1. Generalized weakness and gait abnormality. a. Following a fall with subcapital fracture of the left hip and repair on 12/28/2019. b. Doing well. Walking further with a walker and caregiver assist. Transferring easier as of 01/10. 2. Subcapital fracture of the left hip. a. Secondary to mechanical fall from tripping on 12/27/2019. b. Status post left total hip arthroplasty on 12/27 by Trevor Villasenor, orthopedic surgeon. c. Continued improvement as of 01/10. 3. Ischemic cardiomyopathy. a. Echocardiogram showed ejection fraction of 30% to 35% with an akinetic apex of the left ventricle on 12/27/2019. It also showed a mass at the insertion site of the atrial lead to the implantable cardioverter-defibrillator that was confirmed as a thrombus with transesophageal echocardiogram. 4. Coronary artery disease. a. Status post stent in 2009 and 2011. b. Status post coronary artery bypass x3 on 09/26/2017. c. Presently asymptomatic. 5. Hypertension. 6. Diabetes type 2, insulin requiring. a. History of poor compliance.. b. Hemoglobin A1c 7.5. 7. Hypercholesterolemia. 8. Diabetic peripheral neuropathy, stable. 9. Peripheral vascular disease. a. Status post stents in the arteries of the lower extremities in September 2015. b. Asymptomatic. 10. Stage II decubitus right buttock gradually healing. 11. Thrombus of the insertion site of the right atrial implantable cardioverter-defibrillator lead. a. Confirmed with transesophageal echocardiogram on 12/31/2019. b. On long-term anticoagulants with Eliquis. 12. Urinary tract infection. a. Due to complete antibiotics on 01/13. 13. Urinary retention requiring indwelling Carl catheter. a. Plan to remove the catheter on 01/13. PLAN: Continue present care. Continue PT and OT. Job ID: [id number] MTDD
[2020-01-11] MEDS: Acetaminophen/Codeine 30-300mg Tablet PO PRN (18:19)
[2020-01-11] MEDS: Rosuvastatin 10 MG TAB PO SCH (20:43)
[2020-01-12] MEDS: Ciprofloxacin 500 MG TAB PO SCH ×2 (05:55→20:41)
[2020-01-12] MEDS: Apixaban 5 MG TAB PO SCH ×2 (08:58→20:41)
[2020-01-12] MEDS: metFORMIN 500 MG TAB PO SCH ×2 (08:58→16:19)
[2020-01-12] MEDS: Polyethylene Glycol 3350 17 GM Packet PO SCH (08:58)
[2020-01-12] MEDS: Lisinopril 10 MG TAB PO SCH (08:58)
[2020-01-12] MEDS: Aspirin 81 mg Enteric Coated Tablet PO SCH (08:59)
[2020-01-12] MEDS: Tamsulosin HCl 0.4 MG CAP PO SCH (08:59)
[2020-01-12] MEDS: Senokot S 8.6-50 MG TAB PO SCH ×2 (08:59→20:41)
[2020-01-12] MEDS: Carvedilol 6.25 MG TAB PO SCH ×2 (08:59→20:41)
[2020-01-12] MEDS: Gabapentin 100 MG CAP PO SCH ×3 (08:59→20:41)
[2020-01-12] MEDS: Dutasteride 0.5 MG CAP PO SCH (08:59)
[2020-01-12] MEDS: Lantus 1000 UNITS/10 ML VIAL SC SCH ×2 (09:00→21:31)
[2020-01-12] MEDS: Rosuvastatin 10 MG TAB PO SCH (20:40)
[2020-01-13] MEDS: Ciprofloxacin 500 MG TAB PO SCH ×2 (05:35→20:11)
[2020-01-13] MEDS ORDERED: Ondansetron ODT 4 MG TAB SL SCH (06:45)
[2020-01-13] MEDS: Aspirin 81 mg Enteric Coated Tablet PO SCH (08:37)
[2020-01-13] MEDS: metFORMIN 500 MG TAB PO SCH ×2 (08:37→17:09)
[2020-01-13] MEDS: Carvedilol 6.25 MG TAB PO SCH ×2 (08:38→20:12)
[2020-01-13] MEDS: Lisinopril 10 MG TAB PO SCH (08:38)
[2020-01-13] MEDS: Dutasteride 0.5 MG CAP PO SCH (08:38)
[2020-01-13] MEDS: Apixaban 5 MG TAB PO SCH ×2 (08:38→20:12)
[2020-01-13] MEDS: Senokot S 8.6-50 MG TAB PO SCH ×2 (08:38→20:12)
[2020-01-13] MEDS: Tamsulosin HCl 0.4 MG CAP PO SCH (08:38)
[2020-01-13] MEDS: Gabapentin 100 MG CAP PO SCH ×5 (08:39→20:19)
[2020-01-13] MEDS: Polyethylene Glycol 3350 17 GM Packet PO SCH (08:39)
[2020-01-13] MEDS: Lantus 1000 UNITS/10 ML VIAL SC SCH ×2 (08:39→20:13)
[2020-01-13] MEDS ORDERED: Ondansetron ODT 4 MG TAB SL PRN (10:45)
[2020-01-13] MEDS: Acetaminophen/Codeine 30-300mg Tablet PO PRN (11:01)
[2020-01-13 12:03] LABS: Albumin 2.9 g/dL (3.4-4.8); Calcium 8.7 mg/dL (7.8-10.44); Chloride 100 mmol/L (98-107); Glucose 182 mg/dL (80-115); Potassium 4.7 mmol/L (3.5-5.1); Sodium 136 mmol/L (136-145)
[2020-01-13 12:21] LABS: ALT (SGPT) 16 U/L (8-55); AST (SGOT) 21 U/L (5-34); Alkaline Phosphatase 100 U/L (40-110); BUN (Urea Nitrogen) 25 mg/dL (8.4-25.7); Bilirubin, Total 0.3 mg/dL (0.2-1.2); Calc. Creatinine Clearance 92 mL/min (70-130); Carbon Dioxide 26 mmol/L (23-31); Estimated GFR-MDRD 67; Globulin 4.7 g/dL (2.4-3.5); Protein, Total 7.6 g/dL (5.8-8.1)
[2020-01-13 12:25] LABS: Anion Gap 15 mmol/L (10-20)
--- NOTE | 2020-01-13 16:31 | PRG ---
DATE OF SERVICE: 01/13/2020 SUBJECTIVE: This morning early, he was a little nauseated. He was given Zofran orally disintegrating tablet that helped having a little bit more now. He has had no vomiting, no diarrhea. No abdominal pain. He said he is not having any reflux symptoms. The patient has taken the metformin in the past. He said when he initially started that it upset his stomach a little but he got over that. He was given Cipro early this morning. The nurse said it seemed like the nausea came after he had received the Cipro. OBJECTIVE: GENERAL: The patient is sitting up in a bedside chair. He is alert , talkative, appears comfortable, in no distress. VITAL SIGNS: His temperature is 97.8, pulse 65, respirations 14, O2 saturation 96% on room air, and blood pressure 163/83. FBS 120. LUNGS: Clear. HEART: Regular rate. EXTREMITIES: No edema. LABORATORY DATA: FBS at bedtime yesterday 153, at supper time 151. ASSESSMENT: 1. Generalized weakness and gait abnormality. a. Following a fall with subcapital fracture of the left hip and repair on 12/28/2019. b. Doing well. Walking further with a walker, caregiver assist. Transferring easier as of 01/12. 2. Subcapital fracture of the left hip. a. Secondary to mechanical fall from tripping on 12/27/2019. b. Status post left total hip arthroplasty on 12/27 by orthopedic surgeon, Dr. Trevor Villasenor. c. Continued to improve as of 01/12. 3. Ischemic cardiomyopathy. a. Echocardiogram showed an ejection fraction of 30% and 35% with akinetic apex of the left ventricle on 12/27/2019. Also showed a mass at the insertion site of the atrial lead of the implantable cardioverter-defibrillator that was confirmed to be a thrombus with transesophageal echocardiogram. 4. Coronary artery disease. a. Status post stent in 2009 and 2011. b. Status post coronary artery bypass x3 on 09/26/2017. c. Presently asymptomatic. 5. Hypertension, controlled. 6. Diabetes, type 2, insulin requiring. a. History of poor compliance. b. Hemoglobin A1c 7.5. c. Controlled as of 01/13/2020. 7. Hypercholesterolemia. 8. Diabetic peripheral neuropathy, stable. 9. Peripheral vascular disease. a. Status post stents in the arteries of the lower extremities in September 2015. b. Asymptomatic. 10. Stage II decubitus right buttock, healing. 11. Thrombus at the insertion site of the right atrial implantable cardioverter-defibrillator lead. a. Confirmed with transesophageal echocardiogram on 12/31/2019. b. On long-term anticoagulants with Eliquis. 12. Urinary tract infection. a. Due to complete antibiotics on 01/13. 13. Urinary retention requiring indwelling Carl catheter. a. Planned to remove catheter on 01/13. 14. Nausea in the morning of 01/13/2020. a. May be from the Cipro and/or the metformin. PLAN: We will continue present care. We will try completing the Cipro, to be sure to give the Cipro and the metformin with food. The patient is due to receive last 2 doses of the Cipro tomorrow and have the Carl catheter removed. Continue PT and OT. We will recheck CBC and CMP in the morning. Job ID: [id number] MTDD
[2020-01-13] MEDS: Rosuvastatin 10 MG TAB PO SCH (20:11)
[2020-01-14] MEDS: Ciprofloxacin 500 MG TAB PO SCH ×2 (05:40→20:16)
[2020-01-14] MEDS: Lantus 1000 UNITS/10 ML VIAL SC SCH ×2 (08:18→21:27)
[2020-01-14] MEDS: Dutasteride 0.5 MG CAP PO SCH (08:20)
[2020-01-14] MEDS: Gabapentin 100 MG CAP PO SCH ×3 (08:20→20:16)
[2020-01-14] MEDS: Tamsulosin HCl 0.4 MG CAP PO SCH (08:20)
[2020-01-14] MEDS: Carvedilol 6.25 MG TAB PO SCH ×2 (08:20→20:16)
[2020-01-14] MEDS: metFORMIN 500 MG TAB PO SCH ×2 (08:20→17:06)
[2020-01-14] MEDS: Aspirin 81 mg Enteric Coated Tablet PO SCH (08:20)
[2020-01-14] MEDS: Senokot S 8.6-50 MG TAB PO SCH ×2 (08:21→20:16)
[2020-01-14] MEDS: Lisinopril 10 MG TAB PO SCH (08:21)
[2020-01-14] MEDS: Apixaban 5 MG TAB PO SCH ×2 (08:22→20:16)
[2020-01-14] MEDS: Polyethylene Glycol 3350 17 GM Packet PO SCH (08:22)
[2020-01-14] MEDS: Rosuvastatin 10 MG TAB PO SCH (20:16)
[2020-01-15] MEDS: Acetaminophen/Codeine 30-300mg Tablet PO PRN (01:15)
[2020-01-15] MEDS: Lantus 1000 UNITS/10 ML VIAL SC SCH ×2 (08:15→20:07)
[2020-01-15] MEDS: metFORMIN 500 MG TAB PO SCH ×2 (08:16→17:17)
[2020-01-15] MEDS: Lisinopril 10 MG TAB PO SCH (08:16)
[2020-01-15] MEDS: Apixaban 5 MG TAB PO SCH ×2 (08:16→20:05)
[2020-01-15] MEDS: Aspirin 81 mg Enteric Coated Tablet PO SCH (08:16)
[2020-01-15] MEDS: Dutasteride 0.5 MG CAP PO SCH (08:16)
[2020-01-15] MEDS: Tamsulosin HCl 0.4 MG CAP PO SCH (08:17)
[2020-01-15] MEDS: Gabapentin 100 MG CAP PO SCH ×3 (08:17→20:04)
[2020-01-15] MEDS: Senokot S 8.6-50 MG TAB PO SCH ×2 (08:17→20:03)
[2020-01-15] MEDS: Polyethylene Glycol 3350 17 GM Packet PO SCH (08:17)
--- NOTE | 2020-01-15 08:54 | PRG ---
DATE OF SERVICE: 01/14/2020 SUBJECTIVE: The patient said he is doing good this morning. He had a good night. He is requesting a hospital bed when he goes home. He sleeps with the head of the bed elevated with his congestive cardiomyopathy. He also says that he has a [employer] size bed at home that is too low and he would have difficulty getting up and down out of this. Arrangements for this will be made. OBJECTIVE: GENERAL: The patient is alert. He has had no distress. No complaints this morning. He has had no nausea. VITAL SIGNS: Show temperature 97.8, pulse 67, respirations 18, O2 saturation 96 % on room air, blood pressure 146/72. LUNGS: Clear. HEART: Regular rate. EXTREMITIES: No edema. LABORATORY DATA: Sodium of 136, potassium of 4.7, BUN 25, creatinine 1.09, GFR 67. FBS was 182. These labs were done on 01/12. His FBS at bedtime was 139. ASSESSMENT: 1. Generalized weakness and gait abnormality. a. Following a fall with subcapital fracture of the left hip and repair on 12/28/2019. b. Continue to improve. Walking farther with a walker and caregiver assist. Transferring better as of 01/13. 2. Subcapital fracture of the left hip. a. Secondary to mechanical fall from tripping on 12/27/2019. b. Status post left total hip arthroplasty on 12/27 by orthopedic surgeon, Dr. Trevor Villasenor. c. Continued improvement as of 01/13. 3. Ischemic cardiomyopathy. a. Echocardiogram showed ejection fraction 30% to 35% with akinetic apex of the left ventricle on 12/27/2019. Also, showed a mass at the insertion site of the atrial lead of the ICD that was confirmed to be a thrombus with transesophageal echocardiogram. 4. Coronary artery disease. a. Status post stent in 2009 and 2011. b. Status post coronary artery bypass on 09/26/2017. c. Asymptomatic. 5. Hypertension. 6. Diabetes type 2, insulin requiring. a. History of poor compliance. b. Hemoglobin A1c 7.5. c. Controlled as of 01/13. 7. Hypercholesterolemia. 8. Diabetic peripheral neuropathy, stable. 9. Peripheral vascular disease. a. Status post stents in the arteries of the lower extremity on September 2015. b. Asymptomatic. 10. Stage II decubitus to right buttock, healing. 11. Thrombus at the insertion site of the right atrial insert of his implantable cardioverter-defibrillator. a. Confirmed with transesophageal echocardiogram on 12/30. b. On long-term anticoagulation with Eliquis. 12. Urinary tract infection. a. Will complete his 7 day course of antibiotics on the evening of 01/13. 13. Urinary retention, requiring indwelling Carl catheter. a. Plan is to remove catheter today 01/13. 14. Nausea resolved as of 01/13. PLAN: Continue present care. We will write for him to have a hospital bed. We will remove Carl catheter. Continue PT and OT. Job ID: [id number] MTDD
--- NOTE | 2020-01-15 08:59 | PRG ---
DATE OF SERVICE: 01/15/2020 SUBJECTIVE: The patient said he had a good night. His catheter was removed yesterday and he has had no trouble voiding. The patient feels good this morning. OBJECTIVE: GENERAL: The patient is sitting up, eating his breakfast. He is alert, talkative, appears comfortable and in no distress. VITAL SIGNS: Temperature of 97.7, pulse 67, respirations 18, O2 saturation 97% on room air, blood pressure 145/76. LUNGS: Clear. HEART: Regular rate. EXTREMITIES: No edema. LABORATORY DATA: FBS this morning pending, last night before supper glucose was 137. ASSESSMENT: 1. Generalized weakness and gait abnormality. a. Following a fall with subcapital fracture of the left hip and repair on 12/28/19. b. Doing well, continues to walk farther with a walker. Transferring easier as of 01/14. 2. Subcapital fracture of the left hip. a. Secondary to mechanical fall from tripping on 12/27/2019. b. Status post left total hip arthroplasty on 12/27 by Orthopedic surgeon, Dr. Trevor Villasenor. c. Healing well as of 01/14. 3. Ischemic cardiomyopathy. a. Echocardiogram showed an ejection fraction of 30% to 35% with akinetic apex of the left ventricle on 12/27/19. Also showed a mass at the insertion site of the atrial lead of the ICD that was confirmed to be a thrombus with transesophageal echocardiogram. 4. Coronary artery disease. a. Status post stent in 2009 and 2011. b. Status post coronary artery bypass x3 on 09/26/17. c. Asymptomatic. 5. Hypertension, controlled. 6. Diabetes type 2, insulin requiring. a. Hemoglobin A1c 7.5. b. Controlled as of 01/15/20. 7. Hypercholesterolemia. 8. Diabetic peripheral neuropathy, stable. 9. Peripheral vascular disease. a. Status post stents in the arteries of the lower extremity in September 2015. b. Asymptomatic. 10. Stage II decubitus in the right buttock, healing. 11. Thrombus at the insertion site of the right atrial lead for the ICD. a. Confirmed with transesophageal echocardiogram on 12/31/19. b. On long-term anticoagulation with Eliquis. 12. Urinary tract infection. a. Completed 7-day course of antibiotics on 01/13. 13. Urinary retention requiring indwelling Carl catheter. a. Catheter removed on 01/13. b. Voiding without any difficulty as of 01/14. 14. Nausea on the morning of 01/12, resolved. PLAN: The patient is doing very well. Continue present care. Continue PT and OT. Job ID: [id number] MTDD
[2020-01-15] MEDS: Rosuvastatin 10 MG TAB PO SCH (20:05)
[2020-01-16 05:24] LABS: Hemoglobin 9.7 g/dL (14.0-18.0); Platelet Count 359 thou/uL (130-400)
[2020-01-16] MEDS: Aspirin 81 mg Enteric Coated Tablet PO SCH (08:41)
[2020-01-16] MEDS: Polyethylene Glycol 3350 17 GM Packet PO SCH (08:41)
[2020-01-16] MEDS: metFORMIN 500 MG TAB PO SCH ×2 (08:42→17:18)
[2020-01-16] MEDS: Dutasteride 0.5 MG CAP PO SCH (08:42)
[2020-01-16] MEDS: Tamsulosin HCl 0.4 MG CAP PO SCH (08:42)
[2020-01-16] MEDS: Lisinopril 10 MG TAB PO SCH (08:42)
[2020-01-16] MEDS: Gabapentin 100 MG CAP PO SCH ×3 (08:42→20:12)
[2020-01-16] MEDS: Apixaban 5 MG TAB PO SCH ×2 (08:42→20:11)
[2020-01-16] MEDS: Senokot S 8.6-50 MG TAB PO SCH ×2 (08:42→20:11)
[2020-01-16] MEDS: Lantus 1000 UNITS/10 ML VIAL SC SCH ×2 (08:43→20:13)
--- NOTE | 2020-01-16 09:56 | PRG ---
DATE OF SERVICE: 01/16/2020 SUBJECTIVE: The patient said that he is doing better. He is walking up to 20 feet several times a day and has walked as far as 80 feet with a rolling walker and just minimal caregiver assist. He is transferring with minimum to moderate assistance. OBJECTIVE: GENERAL: The patient is sitting up in a chair. He is alert, appears in no distress. VITAL SIGNS: His temperature is 97.5, pulse 72, respirations 16, O2 saturation 97%, and blood pressure 134/69. LUNGS: Clear. HEART: Regular rate. The decubitus over the right buttock has healed. There is no open area. LABORATORY DATA: His FBS this morning was 96. ASSESSMENT: 1. Generalized weakness and gait abnormality. a. Following a fall and subcapital fracture of the left hip and repair on 12/28/2019. b. Doing better. Walking up to 20 feet several times a day and as far as 80 feet with a walker. Transferring better with minimum to moderate assist as of 01/16/2020. 2. Subcapital fracture of the left hip. a. Secondary to mechanical fall from tripping on 12/27/2019. b. Status post left total hip arthroplasty on 12/27 by orthopedic surgeon, Dr. Trevor Villasenor. c. Healing well as of 01/15. 3. Ischemic cardiomyopathy. a. Echocardiogram showed an ejection fraction of 30% to 35% with akinetic apex of the left ventricle on 12/26, also showed a mass at the insertion site of the ICD of the atrial lead that was confirmed to be a thrombus with transesophageal echo. 4. Coronary artery disease. a. Status post stents in 2009 and 2011. b. Status post coronary artery bypass x3 on 09/26/2017. c. Asymptomatic. 5. Hypertension. 6. Diabetes type 2, insulin requiring. a. Hemoglobin A1c 7.5. b. Controlled as of 01/15. 7. Hypercholesterolemia. 8. Diabetic neuropathy, stable. 9. Peripheral vascular disease. a. Status post stents in the arteries of the lower extremity in September 2015. b. Asymptomatic. 10. Stage II decubitus in the right buttock, healed. 11. Thrombus at the insertion site of the right atrial lead from the ICD. a. Confirmed with transesophageal echocardiogram on 12/31/2019. b. On long-term anticoagulants with Eliquis. 12. Urinary tract infection. a. Completed 7-day course of antibiotics on 01/13. 13. Urinary retention, requiring indwelling Carl catheter. a. Catheter removed on 01/13. b. Voiding without any difficulty as of 01/15. PLAN: Continue present care. Continue PT and OT. The patient is doing better. The patient certainly will benefit by a few more days of physical therapy to try to improve his walking and distance and transfers. Job ID: [id number] [facility]
[2020-01-16] MEDS: Rosuvastatin 10 MG TAB PO SCH (20:11)
[2020-01-16] MEDS ORDERED: Acetaminophen 325 MG TAB PO PRN (20:47)
[2020-01-17] MEDS: Senokot S 8.6-50 MG TAB PO SCH ×2 (08:27→20:37)
[2020-01-17] MEDS: Aspirin 81 mg Enteric Coated Tablet PO SCH (08:27)
[2020-01-17] MEDS: Polyethylene Glycol 3350 17 GM Packet PO SCH (08:27)
[2020-01-17] MEDS: metFORMIN 500 MG TAB PO SCH ×2 (08:27→18:15)
[2020-01-17] MEDS: Gabapentin 100 MG CAP PO SCH ×3 (08:27→20:36)
[2020-01-17] MEDS: Lisinopril 10 MG TAB PO SCH (08:27)
[2020-01-17] MEDS: Apixaban 5 MG TAB PO SCH ×2 (08:27→20:36)
[2020-01-17] MEDS: Dutasteride 0.5 MG CAP PO SCH (08:28)
[2020-01-17] MEDS: Tamsulosin HCl 0.4 MG CAP PO SCH (08:28)
[2020-01-17] MEDS: Lantus 1000 UNITS/10 ML VIAL SC SCH ×2 (08:29→20:36)
[2020-01-17 13:49] VITALS: BMI 27.7
--- NOTE | 2020-01-17 14:58 | PRG ---
DATE OF SERVICE: 01/17/2020 SUBJECTIVE: The patient said that he is feeling very good this morning. He slept good last night. He has already been to therapy and he is doing better with his therapy. He is transferring easier. Yesterday, he walked on 4 occasions from 50 to 75 feet with his rolling walker and minimal assistance. The patient said he is getting all preparations ready at home. He got his hospital bed and walker, anticipating going home in the morning. OBJECTIVE: GENERAL: The patient is sitting up in a bedside chair. He is alert , talkative, looks very comfortable and in no distress. VITAL SIGNS: His temp is 97.9, pulse 62, respirations 20, O2 saturation 96% on room air, blood pressure 144/77. FBS this morning 115. LUNGS: Clear. HEART: Regular rate. EXTREMITIES: No edema. ASSESSMENT: 1. Generalized weakness. a. Following a fall and subcapital fracture of the left hip and repair on 12/28/2019. b. Doing better. Walking 50 to 75 feet several times a day with a walker and minimal assistance. Transferring better as of 01/16. 2. Subcapital fracture of left hip. a. Secondary to mechanical fall from tripping on 12/27/2019. b. Status post left total hip arthroplasty on 12/[address] Trevor Villasenor. c. Continued to improve as of 01/16. 3. Ischemic cardiomyopathy. a. Echocardiogram showed an ejection fraction of 30% to 35% with an akinetic apex of the left ventricle on 12/26. Also showed a mass at the insertion site of the ICD and atrium that was confirmed to be a thrombus with transesophageal echo. 4. Coronary artery disease. a. Status post stents in 2009 and 2011. b. Status post coronary artery bypass x3, 09/26/17. c. Asymptomatic. 5. Hypertension, controlled. 6. 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 a. Hemoglobin A1c 7.5. b. Controlled as of 01/16. 7. Hypercholesterolemia. 8. Diabetic neuropathy, stable. 9. Peripheral vascular disease. a. Status post stents in the arteries of the lower extremity, September 2015. b. Asymptomatic. 10. Stage II decubitus of right buttock, healed. 11. Thrombus at the insertion site of the right atrial lead from the ICD. a. Confirmed with transesophageal echocardiogram on 12/30. b. On long-term anticoagulation with Eliquis. 12. Urinary tract infection. a. Completed 7-day course of antibiotics on 01/13. b. Asymptomatic as of 01/16. 13. Urinary retention requiring indwelling Carl catheter. a. Catheter removed on 01/13. b. Voiding without any difficulty as of 01/16. PLAN: Continue PT and OT. Anticipate discharge tomorrow with home health and in-home PT and OT. Job ID: [id number] [facility]ITAL[facility]
[2020-01-17] MEDS: Rosuvastatin 10 MG TAB PO SCH (20:36)
[2020-01-18] MEDS: Apixaban 5 MG TAB PO SCH (08:42)
[2020-01-18] MEDS: Tamsulosin HCl 0.4 MG CAP PO SCH (08:42)
[2020-01-18] MEDS: Dutasteride 0.5 MG CAP PO SCH (08:43)
[2020-01-18] MEDS: metFORMIN 500 MG TAB PO SCH (08:43)
[2020-01-18] MEDS: Aspirin 81 mg Enteric Coated Tablet PO SCH (08:43)
[2020-01-18] MEDS: Gabapentin 100 MG CAP PO SCH (08:43)
[2020-01-18] MEDS: Lantus 1000 UNITS/10 ML VIAL SC SCH (08:44)
[2020-01-18] MEDS: Senokot S 8.6-50 MG TAB PO SCH (08:44)
[2020-01-18] MEDS: Polyethylene Glycol 3350 17 GM Packet PO SCH (08:44)
[2020-01-18] MEDS: Lisinopril 10 MG TAB PO SCH (08:45)
[2020-01-18 08:52] VITALS: BP 164/82; TEMP 97.6
--- NOTE | 2020-01-19 11:13 | DIS ---
DATE OF ADMISSION: 01/07/2020 DATE OF DISCHARGE: 01/18/2020 FINAL DIAGNOSES: 1. Generalized weakness. a. Following a fall and subcapital fracture of the left hip and repair on . b. Doing better. Walking up to 75 feet several times a day with a walker and minimal assistance. Transferring better as of 01/17. 2. Subcapital fracture of the left hip. a. Secondary to mechanical fall from tripping on 12/27/19. b. Status post left total hip arthroplasty on 12/27 by Orthopedic surgeon, Trevor Villasenor. c. Continued to improve as of 01/17. 3. Ischemic cardiomyopathy. a. Echocardiogram showed an ejection fraction of 30% to 35% with an akinetic apex of the left ventricle on 12/27/19. Also showed a mass at the insertion site of the ICD in the atrium that was confirmed to be a thrombus with transesophageal echo. 4. Coronary artery disease. a. Status post stents in 2009 and 2011. b. Status post coronary artery bypass x3 09/26/17. c. Asymptomatic. 5. Hypertension, controlled. 6. Diabetes type 2. a. Hemoglobin A1c 7.5. b. Controlled as of 01/17. 7. Hypercholesterolemia. 8. Diabetic neuropathy. 9. Peripheral vascular disease. a. Status post stents in the arteries of the lower extremities in September 2015. b. Asymptomatic. 10. Stage II decubitus in the right buttock, healed. 11. Thrombus at the insertion site in the right atrial lead from the ICD. a. Confirmed with transesophageal echocardiogram on 12/31/19. b. On long-term anticoagulation with Eliquis. 12. Urinary tract infection. a. Completed 7 day course of antibiotics on 01/14/20. b. Asymptomatic as of 01/17. 13. Urinary retention requiring indwelling Carl catheter. a. Catheter removed on 01/13. b. Voiding without any difficulty as of 01/17. SUMMARY: Patient is a 69-year-old white male, who has coronary artery disease, ischemic cardiomyopathy with an ejection fraction of 30% to 35% and ICD. He also has diabetes type 2, insulin requiring, and hypertension. The patient had tripped at home, falling onto his left hip, sustaining a left subcapital fracture on 12/27/2019. The patient was brought to the emergency room and then transferred to [facility] where he was hospitalized from 12/26 until 12/28/19. There he underwent a right total hip arthroplasty on 12/27 by Orthopedic surgeon, Trevor Villasenor. His postop course other than initially a little confusion, improved, but he was left extremely weak and needed PT and occupational therapy for the weakness and for his unstable gait. The patient has ischemic cardiomyopathy, and while hospitalized underwent an echocardiogram showing ejection fraction of 30% to 35% with an akinetic apex of the left ventricle on 12/26. There was a mass at the insertion site in the right atrium from the ICD. The patient underwent a transesophageal echo that confirmed that this mass was a thrombus. For this, he was placed on Eliquis, which he will need to be on for a prolonged period. This will be followed up by his head pastry chef, Dr. Lind. While hospitalized, he developed the urinary tract infection, which was treated with Cipro and this was continued orally for a 7 day period when he was transferred to [facility]. He also had urinary retention requiring indwelling Carl catheter. The patient's diabetes was controlled with his Lantus and then was placed on a sliding scale with regular insulin. The patient was transferred to [facility] on 01/07/20 for continued physical therapy and occupational therapy. The patient was noted to have a small stage II decubitus over the right buttock at the gluteal crease. His hospital course at [facility] was one of continual gradual improvement. The decubitus over the right buttock was cleaned and dressed with a sacral Mepilex and this gradually healed. His diabetes showed a hemoglobin A1c of 7.5. He was continued on the Lantus 15 units twice a day and regular insulin was stopped. He was placed on metformin 1000 mg twice a day as diabetes showed good control and his fasting blood sugar on the day of discharge was 94 and at bedtime the night before was 145. Most of the readings in the morning were around 100 to 120. His blood pressure was under good control. His lungs remained clear throughout his hospitalization. His urinary tract infection was treated with the Cipro for 7 days and then stopped and his Carl catheter was removed and he had no trouble voiding. He had no recurrence of any urinary symptoms. The patient's H and H remained stable. Admission H and H 9.5 and 30.1. Repeat on 09/09 was 9.7 and 29.3 with a platelet count of 359. The patient was continued on his Eliquis for the thrombus at the ICD insertion site in right atrium. The patient did very good with his physical therapy and walking up to 95 feet by the time of his discharge with his rolling walker and minimum assistance. He was transferring with minimum assistance. His incision on the left hip was healing well. He had seen Dr. Villasenor, his orthopedic surgeon in followup, who x-rayed the hip and showed good alignment and who felt he was doing well. We will see him in 6 weeks in followup. By 01/17, patient's condition had improved, his pain was well controlled with Tylenol and only occasionally would he use one Tylenol 3. The patient lives with his who will assist him with his care, and Home Health will shrimp picker on his care and also arrange for in-home PT and OT. The patient was discharged on 01/17. DISPOSITION: Diet: Heart healthy diet. Activities: Ambulate with the use of a walker. Glucometer checks daily. Home Health will see patient, arrange for in-home PT and OT. MEDICATIONS: 1. Acetaminophen 325 mg two every 4 hours as needed. 2. Tylenol No.3, one twice a day, if needed for pain. 3. Eliquis 5 mg b.i.d. 4. Aspirin 81 mg daily. 5. Avodart 0.5 mg daily. 6. Gabapentin 100 mg t.i.d. 7. Lantus 15 units subcu twice a day. 8. Metformin 1000 mg b.i.d. 9. Lisinopril 10 mg daily. 10. MiraLAX 17 g in 8 ounces water daily. 11. Senokot-S 2 b.i.d. p.r.n. 12. Rosuvastatin 20 mg at bedtime. 13. Tamsulosin 0.4 mg daily. FOLLOWUP: The patient will need to see his head pastry chef, Dr. Lind in the next 2 to 3 weeks. Follow up with his orthopedic surgeon, Dr. Trevor Villasenor in 6 weeks. Follow up with myself in 2 weeks. Prior to that visit, he will need a CBC, CMP, lipid panel and hemoglobin A1c. CODE STATUS: Full code. Job ID: [id number] [facility]
== END 2020-01-18 11:14 | disposition home health service (06) | DRG 560 ==
LOC: MADMS 15:39
PROVIDERS: ADMIT Family Medicine; ATTEND Family Medicine
DX: S72.012D Unspecified intracapsular fracture of left femur, subsequent encounter for closed fracture with routine healing (principal); I50.22 Chronic systolic (congestive) heart failure; N39.0 Urinary tract infection, site not specified; T82.867A Thrombosis due to cardiac prosthetic devices, implants and grafts, initial encounter; I13.0 Hypertensive heart and chronic kidney disease with heart failure and stage 1 through stage 4 chronic kidney disease, or unspecified chronic kidney disease; I25.5 Ischemic cardiomyopathy; I25.10 Atherosclerotic heart disease of native coronary artery without angina pectoris; I73.9 Peripheral vascular disease, unspecified; E78.00 Pure hypercholesterolemia, unspecified; G62.9 Polyneuropathy, unspecified; E11.22 Type 2 diabetes mellitus with diabetic chronic kidney disease; W01.0XXD Fall on same level from slipping, tripping and stumbling without subsequent striking against object, subsequent encounter; Y83.9 Surgical procedure, unspecified as the cause of abnormal reaction of the patient, or of later complication, without mention of misadventure at the time of the procedure; N18.9 Chronic kidney disease, unspecified; E11.42 Type 2 diabetes mellitus with diabetic polyneuropathy; R33.9 Retention of urine, unspecified; L89.312 Pressure ulcer of right buttock, stage 2; R11.0 Nausea; Z95.810 Presence of automatic (implantable) cardiac defibrillator; Z95.5 Presence of coronary angioplasty implant and graft; Z95.1 Presence of aortocoronary bypass graft; Z95.828 Presence of other vascular implants and grafts; Z79.01 Long term (current) use of anticoagulants; Y93.9 Activity, unspecified; Z79.4 Long term (current) use of insulin
CPT/HCPCS: 36415; 36416; 80053; 80061; 83036; 84443; 85014; 85018; 85025; 85049; J1815; Q0162

== ENCOUNTER 2020-02-07 11:35 | Outpatient (CLI) | payer MEDICARE ==
[2020-02-07 11:56] LABS: #Basophils 0.1 thou/uL (0.0-0.2); #Eosinphils 0.2 thou/uL (0.0-0.7); #Monocytes 0.4 thou/uL (0.11-0.59); #Neutrophils 4.3 thou/uL (1.40-6.50); %Basophils 0.8 % (0.0-1.0); %Eosinophils 2.3 % (0.0-10.0); %Lymphocytes 28.6 % (21.0-51.0); %Monocytes 6.2 % (0.0-10.0); %Neutrophils 62.2 % (42.0-75.0); Hemoglobin 10.6 g/dL (14.0-18.0); Mean Corpuscular Hemoglobin 27.4 pg (27.0-31.0); Mean Corpuscular Volume 85.6 fL (78.0-98.0); Mean Platelet Volume 6.2 fL (7.4-10.4); Platelet Count 266 thou/uL (130-400); RBC Distribution Width 13.6 % (11.5-14.5); Red Blood Cell (RBC) Count 3.87 mill/uL (4.70-6.10); White Blood Cell (WBC) Count 6.9 thou/uL (4.8-10.8)
[2020-02-07 11:58] LABS: ALT (SGPT) 14 U/L (8-55); AST (SGOT) 17 U/L (5-34); Albumin 3.6 g/dL (3.4-4.8); Alkaline Phosphatase 110 U/L (40-110); Anion Gap 17 mmol/L (10-20); BUN (Urea Nitrogen) 19 mg/dL (8.4-25.7); Bilirubin, Total 0.4 mg/dL (0.2-1.2); Calc. Creatinine Clearance 0 mL/min (70-130); Calcium 8.8 mg/dL (7.8-10.44); Carbon Dioxide 26 mmol/L (23-31); Chloride 100 mmol/L (98-107); Estimated GFR-MDRD 75; Globulin 4.3 g/dL (2.4-3.5); Glucose 224 mg/dL (80-115); Potassium 4.5 mmol/L (3.5-5.1); Protein, Total 7.9 g/dL (5.8-8.1); Sodium 138 mmol/L (136-145)
== END 2020-02-07 11:36 | disposition home or self-care (01) ==
LOC: MADLABSP 11:35
PROVIDERS: ATTEND Family Medicine
DX: I10 Essential (primary) hypertension (principal); E11.9 Type 2 diabetes mellitus without complications
CPT/HCPCS: 80053; 85025

== ENCOUNTER 2020-08-27 13:24 | Emergency (ER) | payer MEDICARE ==
[2020-08-27] MEDS ORDERED: Acetaminophen 325 MG Suppository ONE (14:32)
[2020-08-27] MEDS ORDERED: Acetaminophen 325 MG TAB ONE (14:33)
[2020-08-27 14:38] LABS: #Basophils 0.1 thou/uL (0.0-0.2); #Eosinphils 0.1 thou/uL (0.0-0.7); #Monocytes 0.8 thou/uL (0.11-0.59); #Neutrophils 8.1 thou/uL (1.40-6.50); %Basophils 0.5 % (0.0-1.0); %Eosinophils 0.5 % (0.0-10.0); %Lymphocytes 9.6 % (21.0-51.0); %Monocytes 7.7 % (0.0-10.0); %Neutrophils 81.6 % (42.0-75.0); Hemoglobin 11.2 g/dL (14.0-18.0); Mean Corpuscular HGB CONC 31.9 g/dL (32.0-36.0); Mean Corpuscular Hemoglobin 28.3 pg (27.0-31.0); Mean Corpuscular Volume 88.8 fL (78.0-98.0); Platelet Count 362 thou/uL (130-400); RBC Distribution Width 12.5 % (11.5-14.5); Red Blood Cell (RBC) Count 3.97 mill/uL (4.70-6.10); White Blood Cell (WBC) Count 9.9 thou/uL (4.8-10.8)
[2020-08-27 14:58] LABS: ALT (SGPT) 28 U/L (8-55); AST (SGOT) 26 U/L (5-34); Alkaline Phosphatase 108 U/L (40-110); Anion Gap 17 mmol/L (10-20); BUN (Urea Nitrogen) 23 mg/dL (8.4-25.7); Bilirubin, Total 0.6 mg/dL (0.2-1.2); Calc. Creatinine Clearance 0 mL/min (70-130); Calcium 8.8 mg/dL (7.8-10.44); Carbon Dioxide 23 mmol/L (23-31); Chloride 99 mmol/L (98-107); Globulin 5.4 g/dL (2.4-3.5); Glucose 197 mg/dL (80-115); Potassium 3.9 mmol/L (3.5-5.1); Protein, Total 8.4 g/dL (5.8-8.1); Sodium 135 mmol/L (136-145)
[2020-08-27 15:23] LABS: CKMB 1.6 ng/mL (0-6.6)
== END 2020-08-27 17:55 | disposition short-term general hospital (02) ==
LOC: MADERS 13:24
DX: R53.1 Weakness (principal); S80.211A Abrasion, right knee, initial encounter; R79.89 Other specified abnormal findings of blood chemistry; M25.551 Pain in right hip; M25.552 Pain in left hip; R29.700 NIHSS score 0; I11.0 Hypertensive heart disease with heart failure; I50.9 Heart failure, unspecified; I25.10 Atherosclerotic heart disease of native coronary artery without angina pectoris; I25.2 Old myocardial infarction; E11.9 Type 2 diabetes mellitus without complications; N40.0 Benign prostatic hyperplasia without lower urinary tract symptoms; I48.91 Unspecified atrial fibrillation; M47.816 Spondylosis without myelopathy or radiculopathy, lumbar region; Z79.4 Long term (current) use of insulin; Z79.899 Other long term (current) drug therapy; X58.XXXA Exposure to other specified factors, initial encounter
CPT/HCPCS: 36415; 72170; 80053; 82553; 83605; 84484; 85025; 93005

== ENCOUNTER 2021-02-09 07:40 | Emergency (ER) | payer MEDICARE ==
[2021-02-09] MEDS ORDERED: Erythromycin Base 0.5% Ophth Oint 3.5 gm Tube ONE (08:56)
[2021-02-09] MEDS ORDERED: Tetracaine 0.5% PF 4 ML BOT ONE (08:56)
[2021-02-09] MEDS ORDERED: Sodium Chloride 0.9% 1,000 ML ONE (08:58)
== END 2021-02-09 09:53 | disposition home or self-care (01) ==
LOC: MADERS 07:40
DX: T15.92XA Foreign body on external eye, part unspecified, left eye, initial encounter (principal); H57.89 Other specified disorders of eye and adnexa; I11.0 Hypertensive heart disease with heart failure; I50.9 Heart failure, unspecified; I25.2 Old myocardial infarction; E11.9 Type 2 diabetes mellitus without complications; N40.0 Benign prostatic hyperplasia without lower urinary tract symptoms; I48.91 Unspecified atrial fibrillation
CPT/HCPCS: 99283; J7050

== ENCOUNTER 2021-06-25 11:46 | Emergency (ER) | payer MEDICARE ==
[2021-06-25 12:32] LABS: #Basophils 0.1 thou/uL (0.0-0.2); #Lymphocytes 0.5 thou/uL (1.20-3.40); #Monocytes 0.7 thou/uL (0.11-0.59); #Neutrophils 8.1 thou/uL (1.40-6.50); %Basophils 0.8 % (0.0-1.0); %Lymphocytes 5.2 % (21.0-51.0); %Monocytes 7.8 % (0.0-10.0); %Neutrophils 86.2 % (42.0-75.0); Hemoglobin 10.9 g/dL (14.0-18.0); Mean Corpuscular HGB CONC 31.4 g/dL (32.0-36.0); Mean Corpuscular Hemoglobin 25.8 pg (27.0-31.0); Mean Platelet Volume 6.2 fL (7.4-10.4); Platelet Count 189 thou/uL (130-400); RBC Distribution Width 13.5 % (11.5-14.5); Red Blood Cell (RBC) Count 4.22 mill/uL (4.70-6.10); White Blood Cell (WBC) Count 9.4 thou/uL (4.8-10.8)
[2021-06-25 12:48] LABS: ALT (SGPT) 18 U/L (8-55); AST (SGOT) 69 U/L (5-34); Albumin 3.1 g/dL (3.4-4.8); Alkaline Phosphatase 68 U/L (40-110); Anion Gap 20 mmol/L (10-20); BUN (Urea Nitrogen) 44 mg/dL (8.4-25.7); Bilirubin, Total 0.3 mg/dL (0.2-1.2); CK (CPK) 3815 U/L (30-200); Calc. Creatinine Clearance 0 mL/min (70-130); Calcium 8.5 mg/dL (7.8-10.44); Carbon Dioxide 21 mmol/L (23-31); Chloride 106 mmol/L (98-107); Globulin 5.1 g/dL (2.4-3.5); Glucose 234 mg/dL (80-115); Magnesium 1.9 mg/dL (1.6-2.6); Potassium 4.6 mmol/L (3.5-5.1); Protein, Total 8.2 g/dL (5.8-8.1); Sodium 142 mmol/L (136-145)
[2021-06-25 12:55] LABS: Bilirubin Negative (Negative); Blood, Urine Large (Negative); Clarity Clear (Clear); Glucose, Urine (Dipstick) 100 mg/dL (Negative); Ketone, Urine 15 mg/dL (Negative); Leukocyte Negative (Negative); Nitrite Negative (Negative); Protein, Urine (Dipstick) > or equal to 300 mg/dL (Neg-Trace); Urobilinogen 0.2 mg/dL (Less than 2)
[2021-06-25 12:58] LABS: RBC/HPF 0-3 HPF (0-3); Specific Gravity, Urine 1.032 (1.002-1.036); Squamous Epithelial 0-3 HPF (0-3); WBC/HPF None Seen HPF (0-3)
[2021-06-25 12:59] LABS: Bacteria/HPF Rare-Few HPF (None Seen)
[2021-06-25 13:14] LABS: SARS-CoV-2 NAA Rapid Test Not Detected (NotDetected)
[2021-06-25] MEDS ORDERED: Aspirin Chewable 81 MG TAB ONE (13:18)
[2021-06-25 13:28] LABS: CKMB 29.6 ng/mL (0-6.6)
[2021-06-25] MEDS ORDERED: Oseltamivir 75 MG CAP ONE (13:34)
[2021-06-25 14:03] LABS: INR-International Normal Ratio 1.1; PTT 25.9 sec (22.9-36.1); Prothrombin Time 14.2 sec (12.0-14.7)
[2021-06-25] MEDS ORDERED: Sodium Chloride 0.9% 100 ML ONE (14:10)
[2021-06-25] MEDS ORDERED: Heparin 25,000 units/D5W 500 ML ONE (14:10)
[2021-06-25] MEDS ORDERED: Heparin 10,000 UNITS/ 10 ML VIAL ONE (14:10)
[2021-06-25] MEDS ORDERED: cefTRIAXone\\ROCEPHIN 2 GM VIAL ONE (14:10)
[2021-06-25] MEDS ORDERED: Azithromycin 500 MG VIAL ONE (14:10)
[2021-06-25] MEDS ORDERED: Sodium Chloride 0.9% 250 ML 250 ML ONE (14:10)
[2021-06-25 14:40] LABS: Lactic Acid 2.3 mmol/L (0.5-2.2)
[2021-06-25] MEDS ORDERED: Furosemide 20 MG/2 ML VIAL ONE (16:52)
== END 2021-06-25 16:58 | disposition short-term general hospital (02) ==
LOC: MADERS 11:46
DX: I21.4 Non-ST elevation (NSTEMI) myocardial infarction (principal); M62.82 Rhabdomyolysis; E11.65 Type 2 diabetes mellitus with hyperglycemia; R74.02 Elevation of levels of lactic acid dehydrogenase [LDH]; J11.1 Influenza due to unidentified influenza virus with other respiratory manifestations; J18.9 Pneumonia, unspecified organism; I11.0 Hypertensive heart disease with heart failure; I50.9 Heart failure, unspecified; I25.10 Atherosclerotic heart disease of native coronary artery without angina pectoris; I25.2 Old myocardial infarction; I48.91 Unspecified atrial fibrillation; N40.0 Benign prostatic hyperplasia without lower urinary tract symptoms; Z79.899 Other long term (current) drug therapy; Z79.84 Long term (current) use of oral hypoglycemic drugs; Z20.822 Contact with and (suspected) exposure to COVID-19
CPT/HCPCS: 0240U; 70450; 71250; 72125; 80053; 82550; 82553; 83605; 83735; 83880; 84484 ×2; 85025; 85610; 85730; 87040; 93005; 36415; 81003; 81015; 96365; 96366; 96367; 96375; J0456; J0696; J1644; J1940; J3490; J7050